=== PATIENT | female | born 1980 | race Two or more races ===

== ENCOUNTER 2022-10-31 02:48 | Emergency (ER) | payer OTHER, SELFPAY ==
--- NOTE | 2022-10-31 03:03 | ECG_ITS ---
Test Reason : SEIZURE Blood Pressure : / mmHG Vent. Rate : 113 BPM Atrial Rate : 113 BPM P-R Int : 134 ms QRS Dur : 080 ms QT Int : 328 ms P-R-T Axes : 072 071 002 degrees QTc Int : 449 ms Sinus tachycardia Minimal voltage criteria for LVH, may be normal variant ( Sokolow-Paz ) Nonspecific ST abnormality Abnormal ECG No previous ECGs available Referred By: Lilly Medeiros Electronically Signed By:Adam Graham
[2022-10-31 03:08] VITALS: BP 140/78; BP 154/90; PULSE 109; PULSE 120; RESP 10; TEMP 34.7; O2SAT 94; O2SAT 99; BMI 22.0
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
--- NOTE | 2022-10-31 03:13 | PC.NURSE ---
pt rectal temp 94.4, bear christinaer applied
[2022-10-31 03:35] LABS: Basophils Absolute Auto 0.1 X10*3/uL (0.0-0.2); Basophils Percent Auto 0.2 % (0-2); Hematocrit 42.8 % (37.0-47.0); Hemoglobin 13.7 g/dl (12.0-16.0); Imm Gran Abs Auto 0.16 X10*3/uL (0.00-0.03); Imm Gran Pct Auto 0.5 % (0.0-0.4); Lymphocytes Absolute Auto 0.6 X10*3/uL (1.2-4.9); Lymphocytes Percent Auto 2.1 % (20-40); Mean Corpuscular Hemoglobin 29.7 pg (27.0-33.0); Mean Corpuscular Volume 92.8 fL (80.0-98.0); Mean Platelet Volume 9.7 fL (9.4-12.3); Monocytes Absolute Auto 0.7 X10*3/uL (0.1-1.2); Monocytes Percent Auto 2.4 % (2-11); Neutrophils Absolute Auto 28.8 x10*3/uL (2.0-8.3); Neutrophils Percent Auto 94.8 % (45-73); Platelet Count 352 X10*3/uL (160-400); Red Blood Count 4.61 X10*6/uL (4.20-5.50); Red Cell Distribution Width 15.2 % (11.0-16.0); SCAN SMEAR FLAG 1
--- NOTE | 2022-10-31 03:37 | PC.NURSE ---
pt refused straight cath. Dr. Medeiros aware
[2022-10-31 03:38] LABS: Glucose, Whole Blood 225 mg/dL (60-115)
[2022-10-31 03:41] LABS: MANUAL DIFF FLAG SCAN; White Blood Count 30.4 X10*3/uL (4.8-10.8)
[2022-10-31 03:42] LABS: Prothrombin Time 11.9 SEC (10.0-13.1)
[2022-10-31 03:43] LABS: COVID-19 Test Positive (Negative); IDNOW Serial# 6674DD1D
[2022-10-31 03:54] LABS: SLIDE REVIEW VERIFIED
[2022-10-31 03:55] LABS: Alanine Aminotransferase 34 U/L (0-31); Albumin Level 4.4 g/dL (3.5-5.0); Alkaline Phosphatase 89 U/L (39-117); Anion Gap 19 (12-20); Aspartate Amino Transferase 45 U/L (5-31); Bilirubin Direct < 0.2 mg/dL (0.0-0.5); Bilirubin Total 0.3 mg/dL (0.0-1.0); Blood Urea Nitrogen 22 mg/dL (9-16); Calcium 9.2 mg/dL (8.4-10.2); Carbon Dioxide 21 mmol/L (22-29); Chloride 104 mmol/L (96-108); Creatinine Clr Calc Pharmacy 44.2; Estimated Glomerular Filt Rate 50; Glucose Random 147 mg/dL (60-115); Magnesium 2.6 mg/dL (1.6-2.6); Potassium 4.1 mmol/L (3.3-5.1); Sodium 140 mmol/L (135-145); Total Protein 7.4 g/dL (6.5-8.0)
[2022-10-31] MEDS: 0.9 % Sodium Chloride 2,000 ML 999 ML IVCONT (03:57)
[2022-10-31] MEDS: Piperacillin Sodium/Tazobactam 3.375 GM in 0.9 % Sodium Chloride 50 ML IV (03:57)
[2022-10-31 03:58] LABS: Troponin-I High Sensitivity 42.4 ng/L (<3.5-17.0)
[2022-10-31 04:04] LABS: Ethanol < 10 mg/dL
[2022-10-31 04:15] LABS: Lactic Acid 3.1 mmol/L (0.5-2.0)
[2022-10-31 04:34] LABS: TSH reflex Free T4 0.52 uIU/mL (0.32-4.0)
--- NOTE | 2022-10-31 04:34 | PC.NURSE ---
pt refused all care provided, pt became upset and wanted to leave AMA, Dr. Medeiros aware, pt encouraged to seek medical attention.
[2022-10-31 05:58] LABS: Reflex Lactate? Lactic Acid Added
== END 2022-10-31 04:38 | disposition left against medical advice (07) ==
LOC: HO.ED 04:35
PROVIDERS: Emergency Provider Emergency Medicine
DX: U07.1 COVID-19 (principal); R65.20 Severe sepsis without septic shock; D72.829 Elevated white blood cell count, unspecified; R56.9 Unspecified convulsions; Z79.899 Other long term (current) drug therapy
CPT/HCPCS: 36415; 80048; 80076; 82077; 82550; 82947; 83605; 83735; 84443; 84484; 85025; 85610; 87040; 87635; 93005; 96361; 96374; 99284; J2543

== ENCOUNTER 2022-11-01 17:44 | Inpatient (IN) | payer OTHER, SELFPAY ==
--- NOTE | ~2022-11-01 | XR_ITS ---
EXAMINATION: XR CHEST CLINICAL INFORMATION: Shortness of breath COMPARISON: None TECHNIQUE: Frontal view of the chest was obtained. FINDINGS: Heart size normal. No evidence of CHF. There is extensive right perihilar patchy density present suggesting pneumonia. A mass lesion cannot be entirely excluded. Ovoid opacity overlying left chest most likely left nipple shadow. No pleural effusions. The bony thorax is unremarkable. XR/XR chest 1V IMPRESSION: Right perihilar infiltrate. Follow-up chest radiograph after treatment is recommended to exclude a mass lesion. Alternatively, contrast-enhanced CT scan of the chest could be performed.
--- NOTE | ~2022-11-01 | CT_ITS ---
EXAMINATION: CT CHEST WITH CONTRAST CLINICAL INFORMATION: Question mass. COMPARISON: Chest x-ray 11/01/2022. TECHNIQUE: Multidetector volumetric CT imaging of the chest was obtained after the administration of 50 mL of Omnipaque 350 intravenous contrast without immediate adverse reactions. Axial MIP volume rendering provided. Sagittal and coronal reformatted images were obtained. This CT examination was performed using dose optimization techniques as appropriate, variously including the following: *Automated exposure control *Adjustment of mA and/or kV according to patient size (this includes techniques or standardized protocols for targeted exams where dose is matched to indication/reason for exam; i.e. extremities or head) *Use of iterative reconstruction technique DLP: 88 mGy-cm FINDINGS: SHAREPOINT APPLICATION DEVELOPER: The lungs are well inflated and clear. LUNGS: Well expanded with airspace bronchogram and patchy opacity right upper lobe and superior segment right lower lobe. The rest of lungs are well expanded and clear. No pulmonary nodule, mass or ground-glass density seen. MEDIASTINUM: The thyroid lobes are symmetric and normal. The central trachea and bronchi are widely patent. There is no mediastinal or hilar adenopathy seen. However there is suprahilar calcification, likely lymph node from old granulomatous disease. There are no coronary artery calcifications present. PLEURA: There is no pleural effusion. No pleural mass or thickening. AXILLA: No lymphadenopathy. UPPER ABDOMEN: Visualized liver, spleen, pancreas and bilateral adrenal glands are unremarkable. OSSEOUS STRUCTURES: No aggressive lytic or sclerotic process seen. CT/CT chest w IV con IMPRESSION: Right upper lobe and right lower lobe superior segment infiltrates. No obstructive hilar or endobronchial lesion seen. No abnormal lymphadenopathy. Small calcifications in the right suprahilar region, likely lymph nodes from granulomatous disease. Fleischner guidelines were followed.
--- NOTE | ~2022-11-01 | CT_ITS ---
EXAMINATION: CT HEAD WITHOUT CONTRAST CLINICAL INFORMATION: Seizure. COMPARISON: None available. TECHNIQUE: Contiguous axial imaging was performed from the skull base to vertex without intravenous administration of contrast. This CT examination was performed using dose optimization techniques as appropriate, variously including the following: *Automated exposure control. *Adjustment of mA and/or kV according to patient size (this includes techniques or standardized protocols for targeted exams where dose is matched to indication/reason for exam; i.e. extremities or head). *Use of iterative reconstruction technique. DLP: 584 mGy-cm FINDINGS: There is no evidence of acute intracranial hemorrhage or edematous territorial infarction. [place]-white matter differentiation is preserved. There is no abnormal attenuation within the brain parenchyma. The ventricles are normal in morphology and size. No evidence for obstructive hydrocephalus. No abnormal mass effect or midline shift. The cerebellar tonsils are normally positioned. No extra-axial fluid collections. No acute soft tissue or osseous abnormalities. The mastoid air cells and visualized paranasal sinuses are clear. Chronic appearing depression of the right lamina papyracea. CT/CT head/brain wo IV con IMPRESSION: 1. No evidence of acute intracranial hemorrhage or edematous territorial infarction. 2. No demonstrated abnormal mass effect on the noncontrast evaluation.
[2022-11-01 18:48] VITALS: BP 134/64; PULSE 88; RESP 16; TEMP 37.1; O2SAT 100; BMI 22.4
--- NOTE | 2022-11-01 18:50 | ED.GENADULT ---
HPI - General Adult General Chief complaint: Recheck/Abnormal Lab/Rx Stated complaint: was called had issue with bloodwork? Time Seen by Provider: 11/01/22 19:53 Related Data Previous Rx's Medication Instructions Recorded azithromycin 250 mg tablet 250 mg PO DAILY 5 days #5 tabs 11/04/22 cefuroxime axetil 500 mg tablet 500 mg PO BID 5 days #10 tabs 11/04/22 levetiracetam 500 mg tablet 500 mg PO BID 30 days #60 tabs 11/04/22 Allergies Allergy/AdvReac Type Severity Reaction Status Date / Time No Known Allergies Allergy Verified 10/31/22 03:03 [facility] Past Medical History Medical History (Updated 11/02/22 @ 15:43 by Mely Vázquez CNP) Diabetes Seizure disorder Social History Social History Household Members: Unknown / Unable to assess Housing: Unknown / Unable to assess Unable to assess alcohol history related to: Unknown and Refusing to respond Patient Tobacco Use Status: Tobacco use Unknown Substance Use Type: Marijuana service: No Current occupational status: unemployed Physical Exam ED Vital Signs: BMI result Body Mass Index 22.4 Course Course Course Narrative: RME: 42 yold female presents to the ED feeling sick. patient signed out AMA yesterday and was considered septic. WBC yesterday was 30,000. patient is positve covid. repeat labs ordered Medications Administered Discontinued Medications Generic Name Dose Route Start Last Admin Trade Name Freq PRN Reason Stop Dose Admin Acetaminophen 650 mg 11/01/22 22:27 11/04/22 10:44 Acetaminophen 325 Mg Tablet PO 650 mg Q6H PRN Administration Pain, Mild (Pain Scale 1-3) Azithromycin 500 mg 11/01/22 22:53 11/01/22 22:58 Azithromycin 500 Mg Tablet PO 11/01/22 22:54 500 mg ONCE ONE Administration Enoxaparin Sodium 40 mg 11/01/22 23:00 11/03/22 22:09 Enoxaparin Sodium 40 Mg/0.4 Ml Syringe SUBCUT 40 mg Q24H PILY Administration Hydroxyzine HCl 25 mg 11/03/22 15:00 11/04/22 08:20 Hydroxyzine Hcl 25 Mg Tablet PO 25 mg TID PILY Administration Sodium Chloride 1,000 mls @ 999 mls/hr 11/01/22 21:00 11/01/22 22:22 Ns IV 11/01/22 22:00 Infused .Q1H1M PILY Infusion Sodium Chloride 1,000 mls @ 999 mls/hr 11/01/22 21:00 11/01/22 22:23 Ns IV 11/01/22 22:00 Infused .Q1H1M PILY Infusion Levetiracetam 1,000 mg in 100 mls @ 400 mls/hr 11/01/22 20:50 11/01/22 22:00 Keppra IV 11/01/22 21:04 Infused ONCE ONE Infusion Ceftriaxone Sodium 1 gm/ 50 mls @ 100 mls/hr 11/01/22 21:37 11/01/22 22:49 Sodium Chloride IV 11/01/22 22:06 Infused ONCE ONE Infusion Levetiracetam 500 mg in 100 mls @ 400 mls/hr 11/02/22 09:00 11/03/22 08:42 Keppra IV Infused BID PILY Infusion Ceftriaxone Sodium 1 gm/ 50 mls @ 100 mls/hr 11/02/22 21:00 11/03/22 21:30 Sodium Chloride IV Infused Q24H PILY Infusion Azithromycin 500 mg/ Sodium 250 mls @ 125 mls/hr 11/02/22 22:00 11/04/22 00:10 Chloride IV Infused Q24H PILY Infusion Ibuprofen 400 mg 11/03/22 09:09 11/03/22 09:52 Ibuprofen 400 Mg Tablet PO 11/03/22 09:10 400 mg ONCE ONE Administration Ibuprofen 400 mg 11/03/22 14:01 11/04/22 08:20 Ibuprofen 400 Mg Tablet PO 400 mg Q6H PRN Administration Pain, Mild (Pain Scale 1-3) Iohexol 100 ml 11/02/22 11:59 11/02/22 12:00 Iohexol 350 Mg/Ml 100 Ml Infus..Btl IV 11/02/22 12:00 65 ml ONCE ONE Administration Levetiracetam 500 mg 11/03/22 21:00 11/04/22 09:07 Levetiracetam 500 Mg Tablet PO 500 mg BID PILY Administration Lorazepam 2 mg 11/02/22 12:05 11/02/22 13:01 Lorazepam 1 Mg Tablet PO 11/02/22 12:06 2 mg ONCE ONE Administration Magnesium Hydroxide 15 ml 11/04/22 09:38 11/04/22 10:38 Milk Of Magnesia 30 Ml Oral.Susp PO 11/04/22 09:39 15 ml ONCE ONE Administration Melatonin 6 mg 11/01/22 22:27 11/03/22 20:13 Melatonin 3 Mg Tablet PO 6 mg BEDTIME PRN Administration Insomnia Methadone HCl 10 mg 11/02/22 09:42 11/02/22 10:34 Methadone Hcl 20 Mg/2 Ml Oral.Conc PO 11/02/22 09:43 10 mg ONCE ONE Administration Potassium Chloride 40 meq 11/01/22 22:42 11/01/22 22:54 Potassium Chloride Packet 20 Meq Packet PO 11/01/22 22:43 40 meq ONCE ONE Administration Sodium Chloride 3 ml 11/02/22 00:00 11/04/22 08:20 0.9 % Sodium Chloride Flush 3 Ml Syringe IVFLUSH 3 ml QSHIFT PILY Administration Medical Decision Making Lab Data 11/02/22 05:50 11/02/22 05:50 Labs: Lab Results 11/01/22 11/01/22 11/01/22 Range/Units 19:50 19:50 19:50 WBC 9.5 (4.8-10.8) X10*3/uL RBC 4.62 (4.20-5.50) X10*6/uL Hgb 13.6 (12.0-16.0) g/dl Hct 40.6 (37.0-47.0) % MCV 87.9 (80.0-98.0) fL MCH 29.4 (27.0-33.0) pg MCHC 33.5 (31.0-35.0) g/dl RDW 14.6 (11.0-16.0) % Plt Count 363 (160-400) X10*3/uL MPV 9.5 (9.4-12.3) fL Immature Gran % (Auto) 0.2 (0.0-0.4) % Neut % (Auto) 64.5 (45-73) % Lymph % (Auto) 25.2 (20-40) % [place] % (Auto) 7.1 (2-11) % Eos % (Auto) 2.7 (0-4) % Baso % (Auto) 0.3 (0-2) % Lymph # (Auto) 2.4 (1.2-4.9) X10*3/uL [place] # (Auto) 0.7 (0.1-1.2) X10*3/uL Eos # (Auto) 0.3 (0.0-0.4) X10*3/uL Baso # (Auto) 0.0 (0.0-0.2) X10*3/uL Abs Immat Gran (auto) 0.02 (0.00-0.03) X10*3/uL Absolute Neuts (auto) 6.1 (2.0-8.3) x10*3/uL Absolute Nucleated RBC 0.000 (0.0-0.012) X10*3/uL Nucleated RBC % (auto) 0.0 (0.0-0.2) /100WBC ESR (0-20) MM/HR PT (10.0-13.1) SEC INR (0.9-1.1) APTT (26.0-36.4) SEC Sodium 140 (135-145) mmol/L Potassium 3.2 L D (3.3-5.1) mmol/L Chloride 100 (96-108) mmol/L Carbon Dioxide 30 H (22-29) mmol/L Anion Gap 13 (12-20) BUN 7 L (9-16) mg/dL Creatinine 0.73 (0.5-1.4) mg/dL Estim Creat Clear Calc 72.1 Estimated GFR > 60 Random Glucose 74 (60-115) mg/dL Lactic Acid 1.8 (0.5-2.0) mmol/L Calcium 9.7 (8.4-10.2) mg/dL Total Bilirubin 0.4 (0.0-1.0) mg/dL AST 91 H (5-31) U/L ALT 51 H (0-31) U/L Alkaline Phosphatase 74 (39-117) U/L Total Creatine Kinase 5418 H (26-140) U/L Total Protein 7.2 (6.5-8.0) g/dL Albumin 4.3 (3.5-5.0) g/dL Beta HCG, Quant < 2 mIU/mL Urine Color Urine Appearance Urine pH (5.0-9.0) Ur Specific [place] (1.005-1.025) Urine Protein (Neg-Trace) mg/dL Urine Glucose (UA) (Negative) mg/dL Urine Ketones (Negative) mg/dL Urine Blood (Negative) Urine Nitrite (Negative) Ur Leukocyte Esterase (Negative) Urine RBC (0-2) /HPF Urine WBC (0-5) /HPF Ur Squamous Epith Cells (0-2) /HPF Urine Bacteria (None Seen) Hyaline Casts (0-2) /LPF Urine Opiates Screen (Not Detect) Urine Fentanyl Screen (Not Detect) Ur Barbiturates Screen (Not Detect) Ur Phencyclidine Scrn (Not Detect) Ur Amphetamines Screen (Not Detect) U Benzodiazepines Scrn (Not Detect) Urine Cocaine Screen (Not Detect) U Marijuana (THC) Screen (Not Detect) 11/01/22 11/01/22 11/01/22 Range/Units 19:50 19:50 21:09 WBC (4.8-10.8) X10*3/uL RBC (4.20-5.50) X10*6/uL Hgb (12.0-16.0) g/dl Hct (37.0-47.0) % MCV (80.0-98.0) fL MCH (27.0-33.0) pg MCHC (31.0-35.0) g/dl RDW (11.0-16.0) % Plt Count (160-400) X10*3/uL MPV (9.4-12.3) fL Immature Gran % (Auto) (0.0-0.4) % Neut % (Auto) (45-73) % Lymph % (Auto) (20-40) % [place] % (Auto) (2-11) % Eos % (Auto) (0-4) % Baso % (Auto) (0-2) % Lymph # (Auto) (1.2-4.9) X10*3/uL [place] # (Auto) (0.1-1.2) X10*3/uL Eos # (Auto) (0.0-0.4) X10*3/uL Baso # (Auto) (0.0-0.2) X10*3/uL Abs Immat Gran (auto) (0.00-0.03) X10*3/uL Absolute Neuts (auto) (2.0-8.3) x10*3/uL Absolute Nucleated RBC (0.0-0.012) X10*3/uL Nucleated RBC % (auto) (0.0-0.2) /100WBC ESR 34 H (0-20) MM/HR PT 11.5 (10.0-13.1) SEC INR 1.0 (0.9-1.1) APTT 27.9 (26.0-36.4) SEC Sodium (135-145) mmol/L Potassium (3.3-5.1) mmol/L Chloride (96-108) mmol/L Carbon Dioxide (22-29) mmol/L Anion Gap (12-20) BUN (9-16) mg/dL Creatinine (0.5-1.4) mg/dL Estim Creat Clear Calc Estimated GFR Random Glucose (60-115) mg/dL Lactic Acid (0.5-2.0) mmol/L Calcium (8.4-10.2) mg/dL Total Bilirubin (0.0-1.0) mg/dL AST (5-31) U/L ALT (0-31) U/L Alkaline Phosphatase (39-117) U/L Total Creatine Kinase (26-140) U/L Total Protein (6.5-8.0) g/dL Albumin (3.5-5.0) g/dL Beta HCG, Quant mIU/mL Urine Color Yellow Urine Appearance Clear Urine pH 6.5 (5.0-9.0) Ur Specific [place] <= 1.005 (1.005-1.025) Urine Protein Negative (Neg-Trace) mg/dL Urine Glucose (UA) Negative (Negative) mg/dL Urine Ketones Negative (Negative) mg/dL Urine Blood Trace H (Negative) Urine Nitrite Negative (Negative) Ur Leukocyte Esterase Large (3+) H (Negative) Urine RBC 0-2 (0-2) /HPF Urine WBC 11-20 H (0-5) /HPF Ur Squamous Epith Cells 0-2 (0-2) /HPF Urine Bacteria None Seen (None Seen) Hyaline Casts 0-2 (0-2) /LPF Urine Opiates Screen (Not Detect) Urine Fentanyl Screen (Not Detect) Ur Barbiturates Screen (Not Detect) Ur Phencyclidine Scrn (Not Detect) Ur Amphetamines Screen (Not Detect) U Benzodiazepines Scrn (Not Detect) Urine Cocaine Screen (Not Detect) U Marijuana (THC) Screen (Not Detect) 11/01/22 Range/Units 21:09 WBC (4.8-10.8) X10*3/uL RBC (4.20-5.50) X10*6/uL Hgb (12.0-16.0) g/dl Hct (37.0-47.0) % MCV (80.0-98.0) fL MCH (27.0-33.0) pg MCHC (31.0-35.0) g/dl RDW (11.0-16.0) % Plt Count (160-400) X10*3/uL MPV (9.4-12.3) fL Immature Gran % (Auto) (0.0-0.4) % Neut % (Auto) (45-73) % Lymph % (Auto) (20-40) % [place] % (Auto) (2-11) % Eos % (Auto) (0-4) % Baso % (Auto) (0-2) % Lymph # (Auto) (1.2-4.9) X10*3/uL [place] # (Auto) (0.1-1.2) X10*3/uL Eos # (Auto) (0.0-0.4) X10*3/uL Baso # (Auto) (0.0-0.2) X10*3/uL Abs Immat Gran (auto) (0.00-0.03) X10*3/uL Absolute Neuts (auto) (2.0-8.3) x10*3/uL Absolute Nucleated RBC (0.0-0.012) X10*3/uL Nucleated RBC % (auto) (0.0-0.2) /100WBC ESR (0-20) MM/HR PT (10.0-13.1) SEC INR (0.9-1.1) APTT (26.0-36.4) SEC Sodium (135-145) mmol/L Potassium (3.3-5.1) mmol/L Chloride (96-108) mmol/L Carbon Dioxide (22-29) mmol/L Anion Gap (12-20) BUN (9-16) mg/dL Creatinine (0.5-1.4) mg/dL Estim Creat Clear Calc Estimated GFR Random Glucose (60-115) mg/dL Lactic Acid (0.5-2.0) mmol/L Calcium (8.4-10.2) mg/dL Total Bilirubin (0.0-1.0) mg/dL AST (5-31) U/L ALT (0-31) U/L Alkaline Phosphatase (39-117) U/L Total Creatine Kinase (26-140) U/L Total Protein (6.5-8.0) g/dL Albumin (3.5-5.0) g/dL Beta HCG, Quant mIU/mL Urine Color Urine Appearance Urine pH (5.0-9.0) Ur Specific [place] (1.005-1.025) Urine Protein (Neg-Trace) mg/dL Urine Glucose (UA) (Negative) mg/dL Urine Ketones (Negative) mg/dL Urine Blood (Negative) Urine Nitrite (Negative) Ur Leukocyte Esterase (Negative) Urine RBC (0-2) /HPF Urine WBC (0-5) /HPF Ur Squamous Epith Cells (0-2) /HPF Urine Bacteria (None Seen) Hyaline Casts (0-2) /LPF Urine Opiates Screen Not Detected (Not Detect) Urine Fentanyl Screen POSITIVE H (Not Detect) Ur Barbiturates Screen Not Detected (Not Detect) Ur Phencyclidine Scrn Not Detected (Not Detect) Ur Amphetamines Screen Not Detected (Not Detect) U Benzodiazepines Scrn Not Detected (Not Detect) Urine Cocaine Screen POSITIVE H (Not Detect) U Marijuana (THC) Screen POSITIVE H (Not Detect) Discharge Plan Discharge Clinical Impression: COVID-19, Polysubstance (including opioids) dependence w/o physiol dependence, Rhabdomyolysis, Pneumonia Patient Disposition: Admitted As Inpatient Interventions: Admission Worksheet (ED) Last Done: 11/02/22 15:25 Discharge Date/Time: 11/02/22 16:10
[2022-11-01 19:55] LABS: MANUAL DIFF FLAG NO
[2022-11-01 19:58] LABS: Basophils Percent Auto 0.3 % (0-2); Eosinophils Absolute Auto 0.3 X10*3/uL (0.0-0.4); Eosinophils Percent Auto 2.7 % (0-4); Hematocrit 40.6 % (37.0-47.0); Hemoglobin 13.6 g/dl (12.0-16.0); Imm Gran Abs Auto 0.02 X10*3/uL (0.00-0.03); Imm Gran Pct Auto 0.2 % (0.0-0.4); Lymphocytes Absolute Auto 2.4 X10*3/uL (1.2-4.9); Lymphocytes Percent Auto 25.2 % (20-40); Mean Corpuscular HGB Conc 33.5 g/dl (31.0-35.0); Mean Corpuscular Hemoglobin 29.4 pg (27.0-33.0); Mean Corpuscular Volume 87.9 fL (80.0-98.0); Mean Platelet Volume 9.5 fL (9.4-12.3); Monocytes Absolute Auto 0.7 X10*3/uL (0.1-1.2); Monocytes Percent Auto 7.1 % (2-11); Neutrophils Absolute Auto 6.1 x10*3/uL (2.0-8.3); Neutrophils Percent Auto 64.5 % (45-73); Platelet Count 363 X10*3/uL (160-400); Red Blood Count 4.62 X10*6/uL (4.20-5.50); Red Cell Distribution Width 14.6 % (11.0-16.0); White Blood Count 9.5 X10*3/uL (4.8-10.8)
[2022-11-01 20:04] LABS: Prothrombin Time 11.5 SEC (10.0-13.1)
[2022-11-01 20:06] LABS: Partial Thromboplastin Time 27.9 SEC (26.0-36.4)
[2022-11-01 20:18] LABS: Lactic Acid 1.8 mmol/L (0.5-2.0)
[2022-11-01 20:22] LABS: Alanine Aminotransferase 51 U/L (0-31); Albumin Level 4.3 g/dL (3.5-5.0); Alkaline Phosphatase 74 U/L (39-117); Anion Gap 13 (12-20); Aspartate Amino Transferase 91 U/L (5-31); Bilirubin Total 0.4 mg/dL (0.0-1.0); Blood Urea Nitrogen 7 mg/dL (9-16); Calcium 9.7 mg/dL (8.4-10.2); Carbon Dioxide 30 mmol/L (22-29); Chloride 100 mmol/L (96-108); Creatinine Clr Calc Pharmacy 72.1; Estimated Glomerular Filt Rate > 60; Glucose Random 74 mg/dL (60-115); Potassium 3.2 mmol/L (3.3-5.1); Sodium 140 mmol/L (135-145); Total Protein 7.2 g/dL (6.5-8.0)
--- NOTE | 2022-11-01 20:30 | PC.NURSE ---
Nursing Assessment: Pt's a/o x4, pt has IV 20g RAc, pt reports experiencing seizures today, seizures precautions was placed, labs were drawn and meds were administered. Pt abd soft bowel sound throughout 4 quadrants. Pt is able to ambulate to the bathroom. Pt + skin turgor, Pt reports abd pain and loosing appetite more 10 lbs within a month. Pt denies any other s/s.
--- NOTE | 2022-11-01 20:57 | ED_ITS ---
HPI - Recheck/Abnormal Lab/Rx General Chief Complaint: Recheck/Abnormal Lab/Rx Stated Complaint: was called had issue with bloodwork? Time Seen by Provider: 11/01/22 19:53 History of Present Illness HPI narrative: Patient was in the emergency department 2 days prior. At that time patient experienced 2 seizures. Post seizures patient had labs drawn. It showed an elevated lactate and extremely elevated white count 30. Patient did not want stay in the hospital or be further evaluated at the time. Left against medical advice walked out of the emergency department. Presented back to the ED for help. Patient denies having any specific complaints. No chest pain positive generalized malaise. Positive chronic back pain. Patient feel very tired. She is not coughing not congested. She was tested positive for COVID 2 days prior. Unsure when his symptoms started. Patient still feels very weak. He claims he has a long history of seizures. Baseline supposed to be on Keppra. She has been out of medications for months. Denies any new abdominal pain. Patient is extremely hungry. Denies any pain on urination. Denies any recreational drug use. Patient denies any history of IV drug use at all. Is worried that she has bugs in her hair. Related Data Allergies Allergy/AdvReac Type Severity Reaction Status Date / Time No Known Allergies Allergy Verified 10/31/22 03:03 Review of Systems Review of Systems: Positive generalized malaise weakness No fever no chills no cough no congestion that is new. No vomiting no diaphoresis Patient is from home. Yes all other systems are reviewed and are negative PMFSH Past Medical History Attestation statement: The following information was validated with the patient. Medical History (Updated 11/01/22 @ 22:53 by Crista Cazares MD) Diabetes Seizure disorder Social History Social History Smoked in Last 30 Days: Yes Use of substances other than those prescribed or required for medical reasons: Yes Substance Use Type: Marijuana Advance Directives: No Advance Directives Information Provided: Yes Physical Exam Vital Signs: Vital Signs: Last Vital Signs Temp 98.8 F 11/01/22 22:23 Pulse 97 11/01/22 22:23 Resp 18 11/01/22 22:23 BP 117/59 L 11/01/22 22:23 Pulse Ox 96 01/31/23 22:23 O2 Del Method 11/01/22 22:23 BMI result Body Mass Index 22.4 Appearance: Alert. Oriented X3. No acute distress. Eyes: Pupils equal, round and reactive to light. ENT: Pharynx normal. Neck: Normal inspection. Neck supple. No lymph nodes noted. No crepitus CVS: Normal heart rate and rhythm. Pulses normal. Normal S1 and S2 Respiratory: No respiratory distress. Breath sounds normal. No Wheezing. No rales Abdomen: Soft and nontender. No rigidity. No distention. good BS x4 Skin: Skin warm and dry. Normal skin color. Normal skin turgor. Extremities: No lower extremity edema. Neurovascular intact to all extremities. No Lacerations. No Rash Neuro: Oriented X 3. No motor deficit. No sensory deficit. Moving all extermities. No slurred speech Medications Administered Discontinued Medications Generic Name Dose Route Start Last Admin Trade Name Freq PRN Reason Stop Dose Admin Sodium Chloride 1,000 mls @ 999 mls/hr 11/01/22 21:00 11/01/22 21:21 Ns IV 11/01/22 22:00 999 mls/hr .Q1H1M PILY Administration Sodium Chloride 1,000 mls @ 999 mls/hr 11/01/22 21:00 11/01/22 21:22 Ns IV 11/01/22 22:00 999 mls/hr .Q1H1M PILY Administration Levetiracetam 1,000 mg in 100 mls @ 400 mls/hr 11/01/22 20:50 11/01/22 22:00 Keppra IV 11/01/22 21:04 Infused ONCE ONE Infusion Ceftriaxone Sodium 1 gm/ 50 mls @ 100 mls/hr 11/01/22 21:37 11/01/22 22:19 Sodium Chloride IV 11/01/22 22:06 100 mls/hr ONCE ONE Administration Medical Decision Making Medical Decision Making [facility] Narrative: Patient has a history of seizure in the past. Had 2 seizures 2 days prior. At the time had extremely elevated white count. Had elevated lactate. Question secondary to the margin lesion. Patient's repeat labs showed a normal white count. Normal lactate. However patient did have an extremely elevated CPK of over 5000. Cannot exclude the possibility of having rhabdo. IV fluids started patient's CT scan of the head was grossly negative. History of seizure baseline was on Keppra in [place] patient did not take her medication. Will start patient on Keppra 1 g IV. Will monitor patient. Patient's urine also showed signs of infection. Cultures obtained patient's lactate is less than 2 there is no evidence for sepsis patient was given Rocephin. Patient's case discussed with the hospitalist team will hydrate. Will monitor. Patient's ESR is in the 30s. No evidence for septic arthritis. Chest x-ray done. I personally reviewed the x-ray there is right middle lobe infiltrate will add azithromycin along with the Rocephin. Patient to be admitted for further hydration and treatment of rhabdo. Of note patient's tox screen came back positive for marijuana, fentanyl, cocaine Differential Diagnosis Differential Diagnoses: The differential diagnosis associated with the presentation includes Rhabdo, seizure, infection, pneumonia, UTI, skin infection, septic joint, spine infection Admission/Observation Consideration of admission/observation: Escalation of care including admission/observation considered Consult Healthcare Provider Management of the patient was discussed with: Hospitalist Lab Data [facility] Lab Attestation statement: I reviewed the patient's lab results. 11/01/22 19:50 11/01/22 19:50 Labs: Lab Results 11/01/22 11/01/22 11/01/22 Range/Units 19:50 19:50 19:50 WBC 9.5 (4.8-10.8) X10*3/uL RBC 4.62 (4.20-5.50) X10*6/uL Hgb 13.6 (12.0-16.0) g/dl Hct 40.6 (37.0-47.0) % MCV 87.9 (80.0-98.0) fL MCH 29.4 (27.0-33.0) pg MCHC 33.5 (31.0-35.0) g/dl RDW 14.6 (11.0-16.0) % Plt Count 363 (160-400) X10*3/uL MPV 9.5 (9.4-12.3) fL Immature Gran % (Auto) 0.2 (0.0-0.4) % Neut % (Auto) 64.5 (45-73) % Lymph % (Auto) 25.2 (20-40) % [place] % (Auto) 7.1 (2-11) % Eos % (Auto) 2.7 (0-4) % Baso % (Auto) 0.3 (0-2) % Lymph # (Auto) 2.4 (1.2-4.9) X10*3/uL [place] # (Auto) 0.7 (0.1-1.2) X10*3/uL Eos # (Auto) 0.3 (0.0-0.4) X10*3/uL Baso # (Auto) 0.0 (0.0-0.2) X10*3/uL Abs Immat Gran (auto) 0.02 (0.00-0.03) X10*3/uL Absolute Neuts (auto) 6.1 (2.0-8.3) x10*3/uL Absolute Nucleated RBC 0.000 (0.0-0.012) X10*3/uL Nucleated RBC % (auto) 0.0 (0.0-0.2) /100WBC ESR (0-20) MM/HR PT (10.0-13.1) SEC INR (0.9-1.1) APTT (26.0-36.4) SEC Sodium 140 (135-145) mmol/L Potassium 3.2 L D (3.3-5.1) mmol/L Chloride 100 (96-108) mmol/L Carbon Dioxide 30 H (22-29) mmol/L Anion Gap 13 (12-20) BUN 7 L (9-16) mg/dL Creatinine 0.73 (0.5-1.4) mg/dL Estim Creat Clear Calc 72.1 Estimated GFR > 60 Random Glucose 74 (60-115) mg/dL Lactic Acid 1.8 (0.5-2.0) mmol/L Calcium 9.7 (8.4-10.2) mg/dL Total Bilirubin 0.4 (0.0-1.0) mg/dL AST 91 H (5-31) U/L ALT 51 H (0-31) U/L Alkaline Phosphatase 74 (39-117) U/L Total Creatine Kinase 5418 H (26-140) U/L Total Protein 7.2 (6.5-8.0) g/dL Albumin 4.3 (3.5-5.0) g/dL Beta HCG, Quant < 2 mIU/mL Urine Color Urine Appearance Urine pH (5.0-9.0) Ur Specific [place] (1.005-1.025) Urine Protein (Neg-Trace) mg/dL Urine Glucose (UA) (Negative) mg/dL Urine Ketones (Negative) mg/dL Urine Blood (Negative) Urine Nitrite (Negative) Ur Leukocyte Esterase (Negative) Urine RBC (0-2) /HPF Urine WBC (0-5) /HPF Ur Squamous Epith Cells (0-2) /HPF Urine Bacteria (None Seen) Hyaline Casts (0-2) /LPF Urine Opiates Screen (Not Detect) Urine Fentanyl Screen (Not Detect) Ur Barbiturates Screen (Not Detect) Ur Phencyclidine Scrn (Not Detect) Ur Amphetamines Screen (Not Detect) U Benzodiazepines Scrn (Not Detect) Urine Cocaine Screen (Not Detect) U Marijuana (THC) Screen (Not Detect) 11/01/22 11/01/22 11/01/22 Range/Units 19:50 19:50 21:09 WBC (4.8-10.8) X10*3/uL RBC (4.20-5.50) X10*6/uL Hgb (12.0-16.0) g/dl Hct (37.0-47.0) % MCV (80.0-98.0) fL MCH (27.0-33.0) pg MCHC (31.0-35.0) g/dl RDW (11.0-16.0) % Plt Count (160-400) X10*3/uL MPV (9.4-12.3) fL Immature Gran % (Auto) (0.0-0.4) % Neut % (Auto) (45-73) % Lymph % (Auto) (20-40) % [place] % (Auto) (2-11) % Eos % (Auto) (0-4) % Baso % (Auto) (0-2) % Lymph # (Auto) (1.2-4.9) X10*3/uL [place] # (Auto) (0.1-1.2) X10*3/uL Eos # (Auto) (0.0-0.4) X10*3/uL Baso # (Auto) (0.0-0.2) X10*3/uL Abs Immat Gran (auto) (0.00-0.03) X10*3/uL Absolute Neuts (auto) (2.0-8.3) x10*3/uL Absolute Nucleated RBC (0.0-0.012) X10*3/uL Nucleated RBC % (auto) (0.0-0.2) /100WBC ESR 34 H (0-20) MM/HR PT 11.5 (10.0-13.1) SEC INR 1.0 (0.9-1.1) APTT 27.9 (26.0-36.4) SEC Sodium (135-145) mmol/L Potassium (3.3-5.1) mmol/L Chloride (96-108) mmol/L Carbon Dioxide (22-29) mmol/L Anion Gap (12-20) BUN (9-16) mg/dL Creatinine (0.5-1.4) mg/dL Estim Creat Clear Calc Estimated GFR Random Glucose (60-115) mg/dL Lactic Acid (0.5-2.0) mmol/L Calcium (8.4-10.2) mg/dL Total Bilirubin (0.0-1.0) mg/dL AST (5-31) U/L ALT (0-31) U/L Alkaline Phosphatase (39-117) U/L Total Creatine Kinase (26-140) U/L Total Protein (6.5-8.0) g/dL Albumin (3.5-5.0) g/dL Beta HCG, Quant mIU/mL Urine Color Yellow Urine Appearance Clear Urine pH 6.5 (5.0-9.0) Ur Specific [place] <= 1.005 (1.005-1.025) Urine Protein Negative (Neg-Trace) mg/dL Urine Glucose (UA) Negative (Negative) mg/dL Urine Ketones Negative (Negative) mg/dL Urine Blood Trace H (Negative) Urine Nitrite Negative (Negative) Ur Leukocyte Esterase Large (3+) H (Negative) Urine RBC 0-2 (0-2) /HPF Urine WBC 11-20 H (0-5) /HPF Ur Squamous Epith Cells 0-2 (0-2) /HPF Urine Bacteria None Seen (None Seen) Hyaline Casts 0-2 (0-2) /LPF Urine Opiates Screen (Not Detect) Urine Fentanyl Screen (Not Detect) Ur Barbiturates Screen (Not Detect) Ur Phencyclidine Scrn (Not Detect) Ur Amphetamines Screen (Not Detect) U Benzodiazepines Scrn (Not Detect) Urine Cocaine Screen (Not Detect) U Marijuana (THC) Screen (Not Detect) 11/01/22 Range/Units 21:09 WBC (4.8-10.8) X10*3/uL RBC (4.20-5.50) X10*6/uL Hgb (12.0-16.0) g/dl Hct (37.0-47.0) % MCV (80.0-98.0) fL MCH (27.0-33.0) pg MCHC (31.0-35.0) g/dl RDW (11.0-16.0) % Plt Count (160-400) X10*3/uL MPV (9.4-12.3) fL Immature Gran % (Auto) (0.0-0.4) % Neut % (Auto) (45-73) % Lymph % (Auto) (20-40) % [place] % (Auto) (2-11) % Eos % (Auto) (0-4) % Baso % (Auto) (0-2) % Lymph # (Auto) (1.2-4.9) X10*3/uL [place] # (Auto) (0.1-1.2) X10*3/uL Eos # (Auto) (0.0-0.4) X10*3/uL Baso # (Auto) (0.0-0.2) X10*3/uL Abs Immat Gran (auto) (0.00-0.03) X10*3/uL Absolute Neuts (auto) (2.0-8.3) x10*3/uL Absolute Nucleated RBC (0.0-0.012) X10*3/uL Nucleated RBC % (auto) (0.0-0.2) /100WBC ESR (0-20) MM/HR PT (10.0-13.1) SEC INR (0.9-1.1) APTT (26.0-36.4) SEC Sodium (135-145) mmol/L Potassium (3.3-5.1) mmol/L Chloride (96-108) mmol/L Carbon Dioxide (22-29) mmol/L Anion Gap (12-20) BUN (9-16) mg/dL Creatinine (0.5-1.4) mg/dL Estim Creat Clear Calc Estimated GFR Random Glucose (60-115) mg/dL Lactic Acid (0.5-2.0) mmol/L Calcium (8.4-10.2) mg/dL Total Bilirubin (0.0-1.0) mg/dL AST (5-31) U/L ALT (0-31) U/L Alkaline Phosphatase (39-117) U/L Total Creatine Kinase (26-140) U/L Total Protein (6.5-8.0) g/dL Albumin (3.5-5.0) g/dL Beta HCG, Quant mIU/mL Urine Color Urine Appearance Urine pH (5.0-9.0) Ur Specific [place] (1.005-1.025) Urine Protein (Neg-Trace) mg/dL Urine Glucose (UA) (Negative) mg/dL Urine Ketones (Negative) mg/dL Urine Blood (Negative) Urine Nitrite (Negative) Ur Leukocyte Esterase (Negative) Urine RBC (0-2) /HPF Urine WBC (0-5) /HPF Ur Squamous Epith Cells (0-2) /HPF Urine Bacteria (None Seen) Hyaline Casts (0-2) /LPF Urine Opiates Screen Not Detected (Not Detect) Urine Fentanyl Screen POSITIVE H (Not Detect) Ur Barbiturates Screen Not Detected (Not Detect) Ur Phencyclidine Scrn Not Detected (Not Detect) Ur Amphetamines Screen Not Detected (Not Detect) U Benzodiazepines Scrn Not Detected (Not Detect) Urine Cocaine Screen POSITIVE H (Not Detect) U Marijuana (THC) Screen POSITIVE H (Not Detect) Independent Interpretation I performed an independent interpretation of an: CT Scan Interpretation: Of the head was grossly negative for any acute evidence of bleeding Radiology Impression Discussion of test interpretation with radiology: I have reviewed the radiologist's reading. External Record Review External record reviewed: Inpatient record, Outpatient record and Prior outpatient labs Chronic Conditions Seizure Critical Care Time Critical Care Time Critical Care Time: Yes Total Critical Care Time: 40 Attestation: I have personally provided 40 minutes of critical care time exclusive of time spent on separately billable procedures. Time includes review of lab data, radiology results, discussion with consultants, and monitoring for potential decompensation. Interventions were performed as documented above Discharge Plan Discharge Clinical Impression: COVID-19, Polysubstance (including opioids) dependence w/o physiol dependence, Rhabdomyolysis, Pneumonia Patient Disposition: Admitted As Inpatient
[2022-11-01 21:19] LABS: Appearance Urine Clear; Color Urine Yellow; Glucose Urine UA Negative (Negative); Leukocyte Esterase Urine Large (3+) (Negative); Nitrite Urine Negative (Negative); PH 6.5 (5.0-9.0); Specific Gravity - Urine <= 1.005 (1.005-1.025); UMIC TRIGGER UACC YES; Urine Blood Trace (Negative); Urine Ketones Negative (Negative); Urine Protein Negative (Neg-Trace)
[2022-11-01] MEDS: 0.9 % Sodium Chloride 1,000 ML 999 ML IV ×2 (21:21→21:22)
[2022-11-01] MEDS: levETIRAcetam in NaCl (iso-os) 1,000 MG/100 ML PIGGYBACK 400 MG IV (21:21)
[2022-11-01 21:24] LABS: Bacteria Urine None Seen (None Seen); Hyaline Casts Urine 0-2 /LPF (0-2); RBC Urine 0-2 /HPF (0-2); Squamous Epithelial Cell Urine 0-2 /HPF (0-2); UACC Culture Trigger YES
[2022-11-01 21:24] LABS: HCG Quantitative < 2 mIU/mL
[2022-11-01 21:25] LABS: Amphetamine Screen Urine Not Detected (Not Detect); Barbiturates, Urine Not Detected (Not Detect); Benzodiazepines Screen Urine Not Detected (Not Detect); Cannabinoid Screen Urine POSITIVE (Not Detect); Cocaine Screen Urine POSITIVE (Not Detect); Fentanyl, urine POSITIVE (Not Detect); Opiate Screen Urine Not Detected (Not Detect); Phencyclidine Screen Urine Not Detected (Not Detect)
[2022-11-01 21:42] LABS: Erythrocyte Sedimentation Rate 34 MM/HR (0-20)
[2022-11-01] MEDS: cefTRIAXone sodium 1 GM in 0.9 % Sodium Chloride 50 ML IV (22:19)
[2022-11-01 22:23] VITALS: BP 117/59; PULSE 97; RESP 18; TEMP 37.1; O2SAT 96
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
[2022-11-01] MEDS: Enoxaparin Sodium 40 MG/0.4 ML SYRINGE SUBCUT (22:54)
[2022-11-01] MEDS: Potassium Chloride Packet 20 MEQ PACKET 40 MEQ PO (22:54)
[2022-11-01] MEDS: Azithromycin 500 MG TABLET PO (22:58)
[2022-11-01 23:48] VITALS: BP 108/63; PULSE 84; RESP 18; TEMP 37.3; O2SAT 99
[2022-11-02 04:24] LABS: COVID-19 Test Negative (Negative); IDNOW Serial# 6674DD1D
[2022-11-02 05:55] LABS: MANUAL DIFF FLAG NO
[2022-11-02 06:09] LABS: Basophils Percent Auto 0.3 % (0-2); Eosinophils Absolute Auto 0.3 X10*3/uL (0.0-0.4); Eosinophils Percent Auto 2.9 % (0-4); Hematocrit 36.9 % (37.0-47.0); Hemoglobin 11.8 g/dl (12.0-16.0); Imm Gran Pct Auto 1.2 % (0.0-0.4); Lymphocytes Absolute Auto 2.5 X10*3/uL (1.2-4.9); Lymphocytes Percent Auto 28.6 % (20-40); Mean Corpuscular Hemoglobin 29.1 pg (27.0-33.0); Mean Corpuscular Volume 90.9 fL (80.0-98.0); Mean Platelet Volume 9.8 fL (9.4-12.3); Monocytes Absolute Auto 0.7 X10*3/uL (0.1-1.2); Monocytes Percent Auto 7.9 % (2-11); Neutrophils Absolute Auto 5.1 x10*3/uL (2.0-8.3); Neutrophils Percent Auto 59.1 % (45-73); Platelet Count 334 X10*3/uL (160-400); Red Blood Count 4.06 X10*6/uL (4.20-5.50); Red Cell Distribution Width 14.6 % (11.0-16.0); White Blood Count 8.7 X10*3/uL (4.8-10.8)
[2022-11-02 06:43] LABS: Anion Gap 12 (12-20); Blood Urea Nitrogen 13 mg/dL (9-16); Calcium 8.7 mg/dL (8.4-10.2); Carbon Dioxide 26 mmol/L (22-29); Chloride 109 mmol/L (96-108); Creatinine Clr Calc Pharmacy 64.9; Estimated Glomerular Filt Rate > 60; Glucose Random 102 mg/dL (60-115); Potassium 4.4 mmol/L (3.3-5.1); Sodium 143 mmol/L (135-145); Thyroid Stimulating Hormone 0.32 uIU/mL (0.32-4.0)
--- NOTE | 2022-11-02 06:55 | PC.NURSE ---
assumed care of patient, pt aox3, resting comfortaby in bed, VSS, awaiting inpt bed
[2022-11-02 07:08] VITALS: BP 112/62; PULSE 79; RESP 16; TEMP 37.1; O2SAT 100
--- NOTE | 2022-11-02 08:04 | MHC.CM.PN ---
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 PT HAS NO CELL PHONE NUMBER LISTED CM ATTEMPTED TO CONTACT PTS DAUGHTER, TEMO DARNELL [phone] CALL WAS PICKED UP, CM COULD HEAR SEVERAL PEOPLE TALKING IN THE BACKGROUND, HOWEVER NO ONE RESPONDED TO GREETINGS. CM PLACED CALL TO PTS S/O, BENNIE POPE [phone] BENNIE REPORTS THE PT LIVES AT [facility] ON [facility] HE DOES NOT KNOW IF SHE HAS SERVICES, OR A PCP, OR A HCP, OR IF SHE RECEIVED THE COVID-19 VAX. HE REPORTS IT IS TYPICALLY VERY DIFFICULT TO REACH PTS DAUGHTER CURRENT DCP: RETURN TO [facility] VIA SHUTTLE CM FOLLOWING FOR CHANGING DC NEEDS
--- NOTE | 2022-11-02 08:42 | PHA.MEDREC ---
Pharmacy Consult ? Medication Reconciliation Pharmacy has completed the medication reconciliation.
--- NOTE | 2022-11-02 09:16 | PM.NEUROCN ---
History of Present Illness Data of Consult Service Date: 11/02/22 Primary Care Provider: Unknown Physician HPI Reason for consult: Seizure disorder 42 years old woman who came to hospital with complaint of seizure disorder. Apparently she was new to this area. She reported that she has been having seizures since she was 8 years old when she fell out of a building. She did not know details of seizures. Her partner stated that he had seen seizures and during that her neck was extended and eyes were rolled over and she was shaking. She said that she was unable to get her medicine in this area. She was brought to hospital and police found her household and dirty disheveled condition. Review of Systems Review of Systems: Report of multiple recent seizures PENDING SALE TO [facility] Past Medical History Medical History (Updated 11/01/22 @ 22:53 by Crista Cazares MD) Diabetes Seizure disorder Functional capacity: independent ambulation Social History Social History Patient Tobacco Use Status: Tobacco use Unknown Smoked in Last 30 Days: Yes Use of substances other than those prescribed or required for medical reasons: Yes Substance Use Type: Marijuana Advance Directives: No Advance Directives Information Provided: Yes Nutrition Risks: No Nutritional Risk service: No Current occupational status: unemployed Meds Allergies Allergy/AdvReac Type Severity Reaction Status Date / Time No Known Allergies Allergy Verified 10/31/22 03:03 Active Medications: Current Medications Acetaminophen (Acetaminophen 325 Mg Tablet) 650 mg PO Q6H PRN PRN Reason: Pain, Mild (Pain Scale 1-3) Enoxaparin Sodium (Enoxaparin Sodium 40 Mg/0.4 Ml Syringe) 40 mg SUBCUT Q24H PILY Last Admin: 11/01/22 22:54 Dose: 40 mg Levetiracetam (Keppra) 500 mg in 100 mls @ 400 mls/hr IV BID [facility] Ceftriaxone Sodium 1 gm/ (Sodium Chloride) 50 mls @ 100 mls/hr IV Q24H PILY Azithromycin 500 mg/ Sodium (Chloride) 250 mls @ 125 mls/hr IV Q24H PILY Melatonin (Melatonin 3 Mg Tablet) 6 mg PO BEDTIME PRN PRN Reason: Insomnia Ondansetron HCl (Ondansetron Hcl 4 Mg/2 Ml Vial) 4 mg IVPUSH Q8H PRN PRN Reason: Nausea and Vomiting Sodium Chloride (0.9 % Sodium Chloride Flush 3 Ml Syringe) 3 ml IVFLUSH QSHIFT PILY Last Admin: 11/02/22 07:22 Dose: Not Given Home Medications Medication Instructions Recorded Confirmed Last Taken Type No Known Home Meds 11/02/22 11/02/22 Unknown History Physical Exam Vital Signs: Vital Signs: Last Vital Signs Temp 98.8 F 11/02/22 07:08 Pulse 79 11/02/22 07:08 Resp 16 11/02/22 07:08 BP 112/62 11/02/22 07:08 Pulse Ox 100 11/02/22 07:08 O2 Del Method 11/02/22 07:08 BMI result Body Mass Index 22.4 Neuro: Other: Alert and awake but uncomfortable with light keeping her eyes closed. No obvious focal weakness. No obvious facial asymmetry. She is able to communicate and answer questions. Exam is limited. Results Labs 11/02/22 05:50 11/02/22 05:50 Labs: Short CBC 11/01/22 11/02/22 Range/Units 19:50 05:50 WBC 9.5 8.7 (4.8-10.8) X10*3/uL Hgb 13.6 11.8 L (12.0-16.0) g/dl Hct 40.6 36.9 L (37.0-47.0) % Plt Count 363 334 (160-400) X10*3/uL BMP 11/01/22 11/02/22 19:50 05:50 Sodium 140 143 Potassium 3.2 L D 4.4 D Chloride 100 109 H Carbon Dioxide 30 H 26 BUN 7 L 13 Creatinine 0.73 0.81 Calcium 9.7 8.7 D Cardiac Enzymes 11/01/22 11/02/22 Range/Units 19:50 05:50 Total Creatine Kinase 5418 H 3189 H (26-140) U/L Liver Function 11/01/22 Range/Units 19:50 Total Bilirubin 0.4 (0.0-1.0) mg/dL AST 91 H (5-31) U/L ALT 51 H (0-31) U/L Alkaline Phosphatase 74 (39-117) U/L Albumin 4.3 (3.5-5.0) g/dL Urine 11/01/22 Range/Units 21:09 Urine Color Yellow Urine Appearance Clear Urine pH 6.5 (5.0-9.0) Ur Specific [place] <= 1.005 (1.005-1.025) Urine Protein Negative (Neg-Trace) mg/dL Urine Glucose (UA) Negative (Negative) mg/dL Noncontrast head CT is normal. Assessment and Plan (1) Seizure disorder: Status: Acute 42 years old woman with self-reported history of seizure disorder since she was 8 years old comprised of generalized seizures reported by her partner. She also suffered from polysubstance abuse including cocaine. Epilepsy could not be independently confirm at this time but I would suggest continuing levetiracetam 500 mg twice a day for now. She was COVID positive and I would avoid any testing with potential exposure to staff at this point. Once she is stable and well, an outpatient EEG can be considered. Otherwise mainstay of management is staying away from drug of abuse, which was made clear to her, and continuing regular medicines. She was not clear for driving and should avoid any activity that could put her life in danger such as seminal alone or sitting in a soaking tub alone. Time Spent With Patient Time: Total time managing care of this patient today ____ minutes. Procedures Date of Service Date of Service: 11/02/22
[2022-11-02] MEDS: levETIRAcetam in NaCl (iso-os) 500 MG/100 ML PIGGYBACK 400 MG IV ×2 (09:42→20:36)
--- NOTE | 2022-11-02 10:06 | MHC.RECOVRN ---
Met with pt in [facility]flow 1 to discuss substance use. Pt laying in bed, restless, anxious, mildly diaphoretic, mild rhinorrhea. Pt reports using crack cocaine, INH, $150-200 daily x 2 years. 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 Denies heroin/opioid/fentanyl use. Pt aware UDS positive for fentanyl, assumes it is present in crack cocaine. Pt reporting opioid withdrawal symptoms including restlessness, anxiety, body aches. Pt also experiencing stimulant withdrawal. Discussed methadone to address opioid withdrawal symptoms, pt agreeable, has never received methadone before. Pt concerned about being discharged from [facility] due to substance use. Pt informed t/w does not contact the [facility]. Denies other questions or concerns. Discussed with Mely Vázquez APRN. Plan to administer 10 mg methadone and reassess.
[2022-11-02] MEDS: methADONE HCl 20 MG/2 ML ORAL.CONC 10 MG PO (10:34)
[2022-11-02] MEDS: iohexoL 350 MG/ML 100 ML INFUS..BTL IV (12:00)
--- NOTE | 2022-11-02 12:03 | MHC.RECOVRN ---
Met with pt to follow up after receiving methadone, 10 mg. Pt laying in bed, awake, alert, easily engages in conversation. Requesting water and a shower. Pt reports methadone didn't do anything. Withdrawal symptoms including anxiety, rhinorrea, body aches, restlessness continue. Denies upset stomach, yawning, gooseflesh, tearing eyes. Pt appears to be uncomfortable and anxious. Discussed with Mely Vázquez APRN. Plan to administer lorazepam and reassess.
[2022-11-02] MEDS: LORazepam 1 MG TABLET 2 MG PO (13:01)
--- NOTE | 2022-11-02 13:04 | HO.PM.IMPN ---
Subjective Subjective Date of Service: 11/02/22 Review of Systems Follow up Seizure no further seizures while inaptient denies chest pain, sob, nausea or vomiting Physical Exam Vital Signs: Vital Signs: Last Vital Signs Temp 98.8 F 11/02/22 07:08 Pulse 79 11/02/22 07:08 Resp 16 11/02/22 07:08 BP 112/62 11/02/22 07:08 Pulse Ox 100 11/02/22 07:08 O2 Del Method 11/02/22 07:08 BMI result Body Mass Index 22.4 Appearing in no acute distress lung sounds are clear to auscultation heart regular rate rhythm, clear S1, S2 positive bowel sounds, abdomen is soft, nontender neuro patient is alert x3, no focal deficits Multiple scars to abdomen from scratching Objective Data Active Medications Acetaminophen (Acetaminophen 325 Mg Tablet) 650 mg PO Q6H PRN PRN Reason: Pain, Mild (Pain Scale 1-3) Enoxaparin Sodium (Enoxaparin Sodium 40 Mg/0.4 Ml Syringe) 40 mg SUBCUT Q24H [facility] Last Admin: 11/01/22 22:54 Dose: 40 mg Documented By: LORAINE Levetiracetam (Keppra) 500 mg in 100 mls @ 400 mls/hr IV BID [facility] Last Infusion: 11/02/22 09:57 Dose: 0 mls/hr Documented By: LUCY Ceftriaxone Sodium 1 gm/ (Sodium Chloride) 50 mls @ 100 mls/hr IV Q24H PILY Azithromycin 500 mg/ Sodium (Chloride) 250 mls @ 125 mls/hr IV Q24H [facility] Melatonin (Melatonin 3 Mg Tablet) 6 mg PO BEDTIME PRN PRN Reason: Insomnia Ondansetron HCl (Ondansetron Hcl 4 Mg/2 Ml Vial) 4 mg IVPUSH Q8H PRN PRN Reason: Nausea and Vomiting Sodium Chloride (0.9 % Sodium Chloride Flush 3 Ml Syringe) 3 ml IVFLUSH QSHIFT [facility] Last Admin: 11/02/22 07:22 Dose: Not Given Documented By: SHIRLEY Non-Admin Reason: IV Running Labs 11/02/22 05:50 11/02/22 05:50 Labs: Laboratory Results - last 24 hr 11/01/22 11/01/22 11/01/22 19:50 19:50 19:50 MCV 87.9 MCH 29.4 MCHC 33.5 RDW 14.6 Plt Count 363 MPV 9.5 Immature Gran % (Auto) 0.2 Neut % (Auto) 64.5 Lymph % (Auto) 25.2 [place] % (Auto) 7.1 Eos % (Auto) 2.7 Baso % (Auto) 0.3 Lymph # (Auto) 2.4 [place] # (Auto) 0.7 Eos # (Auto) 0.3 Baso # (Auto) 0.0 Abs Immat Gran (auto) 0.02 Absolute Neuts (auto) 6.1 Absolute Nucleated RBC 0.000 Nucleated RBC % (auto) 0.0 ESR PT INR APTT Anion Gap 13 Estim Creat Clear Calc 72.1 Estimated GFR > 60 Random Glucose 74 Lactic Acid 1.8 Calcium 9.7 Total Bilirubin 0.4 AST 91 H ALT 51 H Alkaline Phosphatase 74 Total Creatine Kinase 5418 H Total Protein 7.2 Albumin 4.3 TSH Beta HCG, Quant < 2 Urine Color Urine Appearance Urine pH Ur Specific [place] Urine Protein Urine Glucose (UA) Urine Ketones Urine Blood Urine Nitrite Ur Leukocyte Esterase Urine RBC Urine WBC Ur Squamous Epith Cells Urine Bacteria Hyaline Casts Urine Opiates Screen Urine Fentanyl Screen Ur Barbiturates Screen Ur Phencyclidine Scrn Ur Amphetamines Screen U Benzodiazepines Scrn Urine Cocaine Screen U Marijuana (THC) Screen COVID-19 (CLARE) COVID-19 Clin Com 11/01/22 11/01/22 11/01/22 19:50 19:50 21:09 MCV MCH MCHC RDW Plt Count MPV Immature Gran % (Auto) Neut % (Auto) Lymph % (Auto) [place] % (Auto) Eos % (Auto) Baso % (Auto) Lymph # (Auto) [place] # (Auto) Eos # (Auto) Baso # (Auto) Abs Immat Gran (auto) Absolute Neuts (auto) Absolute Nucleated RBC Nucleated RBC % (auto) ESR 34 H PT 11.5 INR 1.0 APTT 27.9 Anion Gap Estim Creat Clear Calc Estimated GFR Random Glucose Lactic Acid Calcium Total Bilirubin AST ALT Alkaline Phosphatase Total Creatine Kinase Total Protein Albumin TSH Beta HCG, Quant Urine Color Yellow Urine Appearance Clear Urine pH 6.5 Ur Specific [place] <= 1.005 Urine Protein Negative Urine Glucose (UA) Negative Urine Ketones Negative Urine Blood Trace H Urine Nitrite Negative Ur Leukocyte Esterase Large (3+) H Urine RBC 0-2 Urine WBC 11-20 H Ur Squamous Epith Cells 0-2 Urine Bacteria None Seen Hyaline Casts 0-2 Urine Opiates Screen Urine Fentanyl Screen Ur Barbiturates Screen Ur Phencyclidine Scrn Ur Amphetamines Screen U Benzodiazepines Scrn Urine Cocaine Screen U Marijuana (THC) Screen COVID-19 (CLARE) COVID-19 Clin Com 11/01/22 11/02/22 11/02/22 21:09 04:01 05:50 MCV 90.9 MCH 29.1 MCHC 32.0 RDW 14.6 Plt Count 334 MPV 9.8 Immature Gran % (Auto) 1.2 H Neut % (Auto) 59.1 Lymph % (Auto) 28.6 [place] % (Auto) 7.9 Eos % (Auto) 2.9 Baso % (Auto) 0.3 Lymph # (Auto) 2.5 [place] # (Auto) 0.7 Eos # (Auto) 0.3 Baso # (Auto) 0.0 Abs Immat Gran (auto) 0.10 H Absolute Neuts (auto) 5.1 Absolute Nucleated RBC 0.000 Nucleated RBC % (auto) 0.0 ESR PT INR APTT Anion Gap Estim Creat Clear Calc Estimated GFR Random Glucose Lactic Acid Calcium Total Bilirubin AST ALT Alkaline Phosphatase Total Creatine Kinase Total Protein Albumin TSH Beta HCG, Quant Urine Color Urine Appearance Urine pH Ur Specific [place] Urine Protein Urine Glucose (UA) Urine Ketones Urine Blood Urine Nitrite Ur Leukocyte Esterase Urine RBC Urine WBC Ur Squamous Epith Cells Urine Bacteria Hyaline Casts Urine Opiates Screen Not Detected Urine Fentanyl Screen POSITIVE H Ur Barbiturates Screen Not Detected Ur Phencyclidine Scrn Not Detected Ur Amphetamines Screen Not Detected U Benzodiazepines Scrn Not Detected Urine Cocaine Screen POSITIVE H U Marijuana (THC) Screen POSITIVE H COVID-19 (CLARE) Negative COVID-19 Clin Com See Note 11/02/22 05:50 MCV MCH MCHC RDW Plt Count MPV Immature Gran % (Auto) Neut % (Auto) Lymph % (Auto) [place] % (Auto) Eos % (Auto) Baso % (Auto) Lymph # (Auto) [place] # (Auto) Eos # (Auto) Baso # (Auto) Abs Immat Gran (auto) Absolute Neuts (auto) Absolute Nucleated RBC Nucleated RBC % (auto) ESR PT INR APTT Anion Gap 12 Estim Creat Clear Calc 64.9 Estimated GFR > 60 Random Glucose 102 Lactic Acid Calcium 8.7 D Total Bilirubin AST ALT Alkaline Phosphatase Total Creatine Kinase 3189 H Total Protein Albumin TSH 0.32 Beta HCG, Quant Urine Color Urine Appearance Urine pH Ur Specific [place] Urine Protein Urine Glucose (UA) Urine Ketones Urine Blood Urine Nitrite Ur Leukocyte Esterase Urine RBC Urine WBC Ur Squamous Epith Cells Urine Bacteria Hyaline Casts Urine Opiates Screen Urine Fentanyl Screen Ur Barbiturates Screen Ur Phencyclidine Scrn Ur Amphetamines Screen U Benzodiazepines Scrn Urine Cocaine Screen U Marijuana (THC) Screen COVID-19 (CLARE) COVID-19 Clin Com Microbiology Microbiology Results: Microbiology 11/01/22 21:50 Urine Culture - Preliminary Urine clean catch - Urine he top No growth to date. Assessment and Plan (1) Pneumonia: Status: Acute Plan This is a 42-year-old female with pertinent history of seizure disorder, mood disorder, substance use disorder who presents to the emergency department by EMS for evaluation of seizures. Seizure disorder Noncompliance with medications.? Loaded with Keppra in the ER.? Will consult Neurology for recommendations continue Keppra 500mg BID o/p EEG avoid activities such as driving, soaking tubs, swimming alone Right sided pneumonia Rocephin and azithromycin Obtaining CT chest with contrast to rule out a mass Rhabdomyolysis Resuscitating with IV crystalloids.? CPK trending down Substance use disorder UDS positive for cocaine,marijuana and fentanyl.? Monitor for withdrawal.? Consulted CARE team and addiction team. Mood disorder Previously on Zoloft and Seroquel.? Consulting psych for uncontrolled depression and anxiety Hypokalemia Repleted COVID-19 infection Test date 10/31:? No hypoxemia and no indication for Decadron DVT prophylaxis: Lovenox [address] Mustafa Full code continued hospital stay for IV fluid resuscitation and IV abx Time Spent With Patient Time: Total time managing care of this patient today ____ minutes. Quality Stroke Does the patient have a stroke diagnosis?: No VTE Prior VTE?: No VTE Risk Level:: Medical - moderate - high VTE Device Contraindication: Treatment Not Indicated VTE Drug Contraindication: N/A - Med Ordered
--- NOTE | 2022-11-02 13:22 | HO.ADDICT_ITS ---
History of Present Illness Date of Service: 11/02/2022 Chief Complaint: Generalized weakness Reason for Consult: substance use Additional Sources of Information: Patient is a 42 year old female with history of seizure disorder currently medically admitted. UDS +fentanyl, opiates and cocaine. Patient initially seen by Recovery Support RN and appearing uncomfortable, restless, diaphoretic and reporting body aches. Methadone 10mg one time dose ordered and administered. Patient then seen in follow up by this conventional mortgage underwriter, in overflow room 1. Lights off, but TV on. Patient awake, alert, pleasant and engaged in interview. Reports that methadone was not helpful, however patient was no longer restless or diaphoretic. Patient states she moved to [place] 3 months ago from [place] and is living [facility] [place] [facility] with her adult children. She states she has been smoking crack cocaine for about 3 years on and off , however, since moving to [place], she reports smoking daily. She denies any history of opioid use. Discussed UDS results and patient again reports that she does not use heroin or fentanyl, but within the last week she has noted that when she smokes she feels sleepy and has been throwing up a couple of days . She has been buying from the same dealer since moving here. She denies any history of overdose Denies any history of C[facility] treatment Strong family history of addiction -- both parents with OUD Minimal to no supports here in [place]. Review of Systems Constitutional: Reports as per HPI and Reports body ache(s) Diagnostics Vital Signs (24Hr): Vital Signs - 24 hr 11/01/22 18:48 11/01/22 22:23 11/01/22 23:48 Temperature 98.8 F 98.8 F 99.1 F Pulse Rate 88 97 84 Respiratory Rate 16 18 18 Blood Pressure 134/64 117/59 L 108/63 Pulse Oximetry 100 96 99 Oxygen Delivery Method Room Air Room Air Room Air 11/02/22 07:08 Temperature 98.8 F Pulse Rate 79 Respiratory Rate 16 Blood Pressure 112/62 Pulse Oximetry 100 Oxygen Delivery Method Room Air BMI result Body Mass Index 22.4 Labs 11/02/22 05:50 11/02/22 05:50 Labs: Laboratory Results - last 48 hr 11/01/22 11/01/22 11/01/22 19:50 19:50 19:50 WBC 9.5 RBC 4.62 Hgb 13.6 Hct 40.6 MCV 87.9 MCH 29.4 MCHC 33.5 RDW 14.6 Plt Count 363 MPV 9.5 Immature Gran % (Auto) 0.2 Neut % (Auto) 64.5 Lymph % (Auto) 25.2 Warren % (Auto) 7.1 Eos % (Auto) 2.7 Baso % (Auto) 0.3 Lymph # (Auto) 2.4 Warren # (Auto) 0.7 Eos # (Auto) 0.3 Baso # (Auto) 0.0 Abs Immat Gran (auto) 0.02 Absolute Neuts (auto) 6.1 Absolute Nucleated RBC 0.000 Nucleated RBC % (auto) 0.0 ESR PT INR APTT Sodium 140 Potassium 3.2 L D Chloride 100 Carbon Dioxide 30 H Anion Gap 13 BUN 7 L Creatinine 0.73 Estim Creat Clear Calc 72.1 Estimated GFR > 60 Random Glucose 74 Lactic Acid 1.8 Calcium 9.7 Total Bilirubin 0.4 AST 91 H ALT 51 H Alkaline Phosphatase 74 Total Creatine Kinase 5418 H Total Protein 7.2 Albumin 4.3 TSH Beta HCG, Quant < 2 Urine Color Urine Appearance Urine pH Ur Specific Harvard Urine Protein Urine Glucose (UA) Urine Ketones Urine Blood Urine Nitrite Ur Leukocyte Esterase Urine RBC Urine WBC Ur Squamous Epith Cells Urine Bacteria Hyaline Casts Urine Opiates Screen Urine Fentanyl Screen Ur Barbiturates Screen Ur Phencyclidine Scrn Ur Amphetamines Screen U Benzodiazepines Scrn Urine Cocaine Screen U Marijuana (THC) Screen COVID-19 (CLARE) COVID-19 Clin Com 11/01/22 11/01/22 11/01/22 19:50 19:50 21:09 WBC RBC Hgb Hct MCV MCH MCHC RDW Plt Count MPV Immature Gran % (Auto) Neut % (Auto) Lymph % (Auto) Warren % (Auto) Eos % (Auto) Baso % (Auto) Lymph # (Auto) Warren # (Auto) Eos # (Auto) Baso # (Auto) Abs Immat Gran (auto) Absolute Neuts (auto) Absolute Nucleated RBC Nucleated RBC % (auto) ESR 34 H PT 11.5 INR 1.0 APTT 27.9 Sodium Potassium Chloride Carbon Dioxide Anion Gap BUN Creatinine Estim Creat Clear Calc Estimated GFR Random Glucose Lactic Acid Calcium Total Bilirubin AST ALT Alkaline Phosphatase Total Creatine Kinase Total Protein Albumin TSH Beta HCG, Quant Urine Color Yellow Urine Appearance Clear Urine pH 6.5 Ur Specific Harvard <= 1.005 Urine Protein Negative Urine Glucose (UA) Negative Urine Ketones Negative Urine Blood Trace H Urine Nitrite Negative Ur Leukocyte Esterase Large (3+) H Urine RBC 0-2 Urine WBC 11-20 H Ur Squamous Epith Cells 0-2 Urine Bacteria None Seen Hyaline Casts 0-2 Urine Opiates Screen Urine Fentanyl Screen Ur Barbiturates Screen Ur Phencyclidine Scrn Ur Amphetamines Screen U Benzodiazepines Scrn Urine Cocaine Screen U Marijuana (THC) Screen COVID-19 (CLARE) COVID-19 [employer] Com 11/01/22 11/02/22 11/02/22 21:09 04:01 05:50 WBC 8.7 RBC 4.06 L Hgb 11.8 L Hct 36.9 L MCV 90.9 MCH 29.1 MCHC 32.0 RDW 14.6 Plt Count 334 MPV 9.8 Immature Gran % (Auto) 1.2 H Neut % (Auto) 59.1 Lymph % (Auto) 28.6 Warren % (Auto) 7.9 Eos % (Auto) 2.9 Baso % (Auto) 0.3 Lymph # (Auto) 2.5 Warren # (Auto) 0.7 Eos # (Auto) 0.3 Baso # (Auto) 0.0 Abs Immat Gran (auto) 0.10 H Absolute Neuts (auto) 5.1 Absolute Nucleated RBC 0.000 Nucleated RBC % (auto) 0.0 ESR PT INR APTT Sodium Potassium Chloride Carbon Dioxide Anion Gap BUN Creatinine Estim Creat Clear Calc Estimated GFR Random Glucose Lactic Acid Calcium Total Bilirubin AST ALT Alkaline Phosphatase Total Creatine Kinase Total Protein Albumin TSH Beta HCG, Quant Urine Color Urine Appearance Urine pH Ur Specific Harvard Urine Protein Urine Glucose (UA) Urine Ketones Urine Blood Urine Nitrite Ur Leukocyte Esterase Urine RBC Urine WBC Ur Squamous Epith Cells Urine Bacteria Hyaline Casts Urine Opiates Screen Not Detected Urine Fentanyl Screen POSITIVE H Ur Barbiturates Screen Not Detected Ur Phencyclidine Scrn Not Detected Ur Amphetamines Screen Not Detected U Benzodiazepines Scrn Not Detected Urine Cocaine Screen POSITIVE H U Marijuana (THC) Screen POSITIVE H COVID-19 (CLARE) Negative COVID-19 Clin Com See Note 11/02/22 05:50 WBC RBC Hgb Hct MCV MCH MCHC RDW Plt Count MPV Immature Gran % (Auto) Neut % (Auto) Lymph % (Auto) Warren % (Auto) Eos % (Auto) Baso % (Auto) Lymph # (Auto) Warren # (Auto) Eos # (Auto) Baso # (Auto) Abs Immat Gran (auto) Absolute Neuts (auto) Absolute Nucleated RBC Nucleated RBC % (auto) ESR PT INR APTT Sodium 143 Potassium 4.4 D Chloride 109 H Carbon Dioxide 26 Anion Gap 12 BUN 13 Creatinine 0.81 Estim Creat Clear Calc 64.9 Estimated GFR > 60 Random Glucose 102 Lactic Acid Calcium 8.7 D Total Bilirubin AST ALT Alkaline Phosphatase Total Creatine Kinase 3189 H Total Protein Albumin TSH 0.32 Beta HCG, Quant Urine Color Urine Appearance Urine pH Ur Specific Harvard Urine Protein Urine Glucose (UA) Urine Ketones Urine Blood Urine Nitrite Ur Leukocyte Esterase Urine RBC Urine WBC Ur Squamous Epith Cells Urine Bacteria Hyaline Casts Urine Opiates Screen Urine Fentanyl Screen Ur Barbiturates Screen Ur Phencyclidine Scrn Ur Amphetamines Screen U Benzodiazepines Scrn Urine Cocaine Screen U Marijuana (THC) Screen COVID-19 (CLARE) COVID-19 Clin Com Imaging Radiology Impressions: ITS Impressions Head CT 11/01/22 21:54 IMPRESSION: 1. No evidence of acute intracranial hemorrhage or edematous territorial infarction. 2. No demonstrated abnormal mass effect on the noncontrast evaluation. Chest X-Ray 11/01/22 22:52 IMPRESSION: Right perihilar infiltrate. Follow-up chest radiograph after treatment is recommended to exclude a mass lesion. Alternatively, contrast-enhanced CT scan of the chest could be performed. Mental Status Exam Mental Status Exam Patient Appearance: Unkempt (thin) Level of Consciousness: Awake, Appropriate and Alert Patient Behavior: Cooperative Affect Description: Anxious Patient Cognition Impaired: No Speech Pattern: Clear Judgement: Fair Medications Medications Current Medications Acetaminophen (Acetaminophen 325 Mg Tablet) 650 mg PO Q6H PRN PRN Reason: Pain, Mild (Pain Scale 1-3) Enoxaparin Sodium (Enoxaparin Sodium 40 Mg/0.4 Ml Syringe) 40 mg SUBCUT Q24H [facility] Last Admin: 11/01/22 22:54 Dose: 40 mg Levetiracetam (Keppra) 500 mg in 100 mls @ 400 mls/hr IV BID [facility] Last Infusion: 11/02/22 09:57 Dose: Infused Ceftriaxone Sodium 1 gm/ (Sodium Chloride) 50 mls @ 100 mls/hr IV Q24H [facility] Azithromycin 500 mg/ Sodium (Chloride) 250 mls @ 125 mls/hr IV Q24H [facility] Melatonin (Melatonin 3 Mg Tablet) 6 mg PO BEDTIME PRN PRN Reason: Insomnia Ondansetron HCl (Ondansetron Hcl 4 Mg/2 Ml Vial) 4 mg IVPUSH Q8H PRN PRN Reason: Nausea and Vomiting Sodium Chloride (0.9 % Sodium Chloride Flush 3 Ml Syringe) 3 ml IVFLUSH QSHIFT [facility] Last Admin: 11/02/22 07:22 Dose: Not Given Allergies Allergies Allergy/AdvReac Type Severity Reaction Status Date / Time No Known Allergies Allergy Verified 10/31/22 03:03 Assessment & Plan Assessment & Plan (1) Cocaine use disorder, severe, dependence: Status: Acute Code(s): F14.20 - Cocaine dependence, uncomplicated Assessment and Plan: * patient experiencing cocaine withdrawal. Less likely opioid withdrawal based on her history and reported use * treating body aches with ibuprofen and hydration is recommended standard of care * hydroxyzine for anxiety * allowing patient to sleep if possible due to sleep deprivation from chronic stimulant use * risk reduction discussion related to testing cocaine before using for presence of fentanyl (Recovery Support RN to check in the AM with additional information) * risk reduction discussion related to ongoing use and seizure disorder Total time managing care of this patient today _40___ minutes. PMFSH Past Medical History Medical History (Updated 11/02/22 @ 15:43 by Mely Vázquez CNP) Diabetes Seizure disorder Social History Social History Patient Tobacco Use Status: Tobacco use Unknown Smoked in Last 30 Days: Yes Use of substances other than those prescribed or required for medical reasons: Yes Substance Use Type: Marijuana Advance Directives: No Advance Directives Information Provided: Yes Nutrition Risks: No Nutritional Risk service: No Current occupational status: unemployed
[2022-11-02] MEDS: 0.9 % Sodium Chloride Flush 3 ML SYRINGE IVFLUSH ×2 (15:14→20:36)
[2022-11-02 16:15] VITALS: BP 98/61; PULSE 72; RESP 18; TEMP 37; O2SAT 98
--- NOTE | 2022-11-02 16:48 | PC.NURSE ---
pt refusing to talk to this RN and answer admission questions.
[2022-11-02 19:27] VITALS: BP 100/57; PULSE 69; RESP 18; TEMP 37.1; O2SAT 97
[2022-11-02] MEDS: Acetaminophen 325 MG TABLET 650 MG PO (20:36)
[2022-11-02] MEDS: cefTRIAXone sodium 1 GM in 0.9 % Sodium Chloride 50 ML IV (20:48)
[2022-11-02] MEDS: Azithromycin 500 MG in 0.9 % Sodium Chloride 250 ML 125 MG IV (22:47)
[2022-11-02] MEDS: Enoxaparin Sodium 40 MG/0.4 ML SYRINGE SUBCUT (22:47)
[2022-11-03 03:50] VITALS: BP 121/67; PULSE 68; RESP 18; TEMP 36.5; O2SAT 99
[2022-11-03 08:00] VITALS: BP 110/58; PULSE 83; RESP 18; TEMP 36.8; O2SAT 98
[2022-11-03] MEDS: levETIRAcetam in NaCl (iso-os) 500 MG/100 ML PIGGYBACK 400 MG IV (08:17)
[2022-11-03] MEDS: 0.9 % Sodium Chloride Flush 3 ML SYRINGE IVFLUSH (08:24)
--- NOTE | 2022-11-03 08:46 | ECG_ITS ---
Test Reason : chest pain Blood Pressure : / mmHG Vent. Rate : 078 BPM Atrial Rate : 078 BPM P-R Int : 134 ms QRS Dur : 086 ms QT Int : 370 ms P-R-T Axes : 060 058 024 degrees QTc Int : 421 ms Normal sinus rhythm Normal ECG When compared with ECG of 31-OCT-2022 03:01, T wave amplitude has decreased in Anterior leads Referred By: Sandrine Pinto Electronically Signed By:Adam Graham
[2022-11-03] MEDS: Ibuprofen 400 MG TABLET PO ×2 (09:52→20:14)
[2022-11-03] MEDS: hydrOXYzine HCL 25 MG TABLET PO ×2 (13:54→20:13)
--- NOTE | 2022-11-03 14:03 | P.PNIM_ITS ---
Subjective Subjective Date of Service: 11/03/22 Interval History: seen and examined this morning follow up for seizure, pneumonia reporting chest pain to right chest wall, reproducible on exam no significant sob Review of Systems Review of Systems: Yes all other systems are reviewed and are negative Constitutional Constitutional: Denies chills and Denies fever(s) Cardiovascular Cardiovascular: Reports chest pain, Denies palpitations and Denies dyspnea Respiratory Respiratory: Denies dyspnea Gastrointestinal Gastrointestinal: Denies abdominal pain, Denies nausea and Denies vomiting Endocrine Endocrine: Denies palpitations Physical Exam Vital Signs: Vital Signs: Last Vital Signs Temp 98.3 F 11/03/22 08:00 Pulse 83 11/03/22 08:00 Resp 18 11/03/22 08:00 BP 110/58 L 11/03/22 08:00 Pulse Ox 98 11/03/22 08:00 O2 Del Method 11/03/22 08:00 BMI result Body Mass Index 22.4 Const: General: alert and awake Nutritional Appearance: thin Orientation/consciousness: patient oriented x3 Chest: Other: point tenderness right anterior chest wall Resp: Effort & Inspection: normal respiratory effort, able to speak in complete sentences, no respiratory distress and no use of accessory muscles Cardio: Rate: regular rate Heart sounds: S1 normal heart sound present and S2 normal heart sound present GI: Inspection: No distended Palpation (GI): Soft to palpation Neuro: General: patient oriented x3 Extrem: General: Yes no pedal edema Objective Data Active Medications Acetaminophen (Acetaminophen 325 Mg Tablet) 650 mg PO Q6H PRN PRN Reason: Pain, Mild (Pain Scale 1-3) Last Admin: 11/02/22 20:36 Dose: 650 mg Documented By: RYAN Benzonatate (Benzonatate 100 Mg Capsule) 100 mg PO TID PRN PRN Reason: Cough Enoxaparin Sodium (Enoxaparin Sodium 40 Mg/0.4 Ml Syringe) 40 mg SUBCUT Q24H S Last Admin: 11/02/22 22:47 Dose: 40 mg Documented By: RYAN Hydroxyzine HCl (Hydroxyzine Hcl 25 Mg Tablet) 25 mg PO TID [facility] Last Admin: 11/03/22 13:54 Dose: 25 mg Documented By: SOLISKORI Levetiracetam (Keppra) 500 mg in 100 mls @ 400 mls/hr IV BID [facility] Last Infusion: 11/03/22 08:42 Dose: 0 mls/hr Documented By: PAWEL Ceftriaxone Sodium 1 gm/ (Sodium Chloride) 50 mls @ 100 mls/hr IV Q24H [facility] Last Infusion: 11/02/22 21:41 Dose: 0 mls/hr Documented By: RYAN Azithromycin 500 mg/ Sodium (Chloride) 250 mls @ 125 mls/hr IV Q24H [facility] Last Infusion: 11/03/22 02:30 Dose: 0 mls/hr Documented By: RYAN Ibuprofen (Ibuprofen 400 Mg Tablet) 400 mg PO Q6H PRN PRN Reason: Pain, Mild (Pain Scale 1-3) Melatonin (Melatonin 3 Mg Tablet) 6 mg PO BEDTIME PRN PRN Reason: Insomnia Ondansetron HCl (Ondansetron Hcl 4 Mg/2 Ml Vial) 4 mg IVPUSH Q8H PRN PRN Reason: Nausea and Vomiting Sodium Chloride (0.9 % Sodium Chloride Flush 3 Ml Syringe) 3 ml IVFLUSH QSHIFT [facility] Last Admin: 11/03/22 08:24 Dose: 3 ml Documented By: PAWEL Tramadol HCl (Tramadol Hcl 50 Mg Tablet) 50 mg PO Q6H PRN PRN Reason: Pain, Moderate (Pain Scale 4-6 Labs 11/02/22 05:50 11/02/22 05:50 Microbiology Microbiology Results: Microbiology 11/01/22 21:50 Urine Culture - Final Urine clean catch - Urine he top No growth. 11/01/22 19:50 Blood Culture - Preliminary Blood - Venous No growth after 24 hours. 11/01/22 19:50 Blood Culture - Preliminary Blood - Venous No growth after 24 hours. Assessment and Plan (1) Cocaine use disorder, severe, dependence: Status: Acute (2) Pneumonia: Status: Acute (3) COVID-19: Status: Acute (4) Seizure disorder: Status: Acute Plan This is a 42-year-old female with pertinent history of seizure disorder, mood disorder, substance use disorder who presents to the emergency department by EMS for evaluation of seizures. Seizure disorder secondary to noncompliance with medications.? Loaded with Keppra in the ER.? seen by neuro, recommend to continue keppra 500 bid o/p EEG avoid activities such as driving, soaking tubs, swimming alone Right sided pneumonia continue Rocephin and azithromycin, D#2 CT chest with contrast - confirms RUL, RLL pneumonia, no evidence of mass Blood cultures negative to date Chest pain likely r/t pneumonia focal point tenderness on exam EKG without ischemic changes symptomatic care Rhabdomyolysis s/p IVF? CPK trending down Substance use disorder UDS positive for cocaine,marijuana and fentanyl.? Monitor for withdrawal.? addiction following, recommend atarax, motrin Mood disorder Previously on Zoloft and Seroquel.? Consulting psych for uncontrolled depression and anxiety Hypokalemia Resolved with replacement COVID-19 infection Test date 10/31:? No hypoxemia and no indication for Decadron DVT prophylaxis: Lovenox [address] Mustafa Full code continued hospital stay for IV abx Time Spent With Patient Time: Total time managing care of this patient today ____ minutes. Quality Stroke Does the patient have a stroke diagnosis?: No VTE Prior VTE?: No VTE Risk Level:: Medical - moderate - high VTE Device Contraindication: Treatment Not Indicated VTE Drug Contraindication: N/A - Med Ordered
[2022-11-03 15:15] VITALS: BP 131/76; PULSE 65; RESP 18; TEMP 36.9; O2SAT 100
[2022-11-03] MEDS: Acetaminophen 325 MG TABLET 650 MG PO (15:19)
--- NOTE | 2022-11-03 16:27 | MHC.RECOVRN ---
This signwriter met with patient, patient was laying in bed, under covers. Patient reporting body aches, sweats, chills, increased anxiety. Harm reduction reviewed. Recovery resources reviewed, provided with materials for Maryellen Mcnally, [facility] and [facility] contact info. Reviewed assessment w/ Provider Mely Vázquez, discussed ordering Hydroxyzine for anxiety, Tylenol when due for body aches d/t DA withdrawal.
[2022-11-03] MEDS: levETIRAcetam 500 MG TABLET PO (20:13)
[2022-11-03] MEDS: Melatonin 3 MG TABLET 6 MG PO (20:13)
[2022-11-03] MEDS: cefTRIAXone sodium 1 GM in 0.9 % Sodium Chloride 50 ML IV (20:15)
[2022-11-03] MEDS: Enoxaparin Sodium 40 MG/0.4 ML SYRINGE SUBCUT (22:09)
[2022-11-03] MEDS: Azithromycin 500 MG in 0.9 % Sodium Chloride 250 ML 125 MG IV (22:09)
[2022-11-04] MEDS: 0.9 % Sodium Chloride Flush 3 ML SYRINGE IVFLUSH ×2 (00:16→08:20)
[2022-11-04 03:43] VITALS: BP 115/79; PULSE 67; RESP 18; TEMP 36.6; O2SAT 99
[2022-11-04 07:56] VITALS: BP 128/69; PULSE 76; RESP 18; TEMP 36.1; O2SAT 100
[2022-11-04] MEDS: Ibuprofen 400 MG TABLET PO (08:20)
[2022-11-04] MEDS: hydrOXYzine HCL 25 MG TABLET PO (08:20)
--- NOTE | 2022-11-04 08:35 | P.CDIC_ITS ---
CDI Concurrent Query Documentation Clarification: PHYSICIAN'S DOCUMENTATION REQUEST Date of Query: 11/04/22 0835 Patient Name: Mely Neff Admit Date: 11/01/22 Dear Doctor, A review of the medical record indicates additional documentation may be needed. Please review below and update the documentation accordingly. Clinical Indicators: Risk Factors/Clinical Indicators/Treatments PMH: Seizure disorder, family noticed 2 episodes of seizures, patient has not taken meds in 2 months. Loaded with Keppra in the ED. If possible, please further clarify in the Progress Notes, the type/etiology, acuity and control status of seizure(s): Specify type/etiology: * Idiopathic * Febrile (specify simple or complex) * Due to external cause (specify if drug, alcohol, stress, etc.) * Absence * Generalized epilepsy (grand mal, myoclonic, atonic, clonic, tonic-clonic, etc.) * Focal or partial (specify simple or complex) * Petit mal * Recurrent - further specify type/etiology * Other * Unable to determine Specify acuity: * With status epilepticus * Without status epilepticus * Other * Unable to determine Specify control status: * Well controlled * Intractable * Pharmacoresistant * Poorly controlled * Refractory * Treatment resistant * Other * Unable to determine Use of terms such as suspected, likely, concern for, or probable (associated with a specific diagnosis that is being evaluated, monitored, or treated as if it exists) are acceptable and can be coded in the inpatient setting, when documented at the time of discharge. Thank you, Kerry Vega [facility], CDIS Extension: [phone] Please use your independent medical judgment in providing your response. THIS QUERY IS PART OF THE PERMANENT MEDICAL RECORD Provider Response: Other Other Diagnosis: seizure related to not taking seizure medication; without status epilepticus
--- NOTE | 2022-11-04 08:35 | MHC.CDI.CONC ---
CDI Concurrent Query Documentation Clarification: PHYSICIAN'S DOCUMENTATION REQUEST Date of Query: 11/04/22 0835 Patient Name: Mely Neff Admit Date: 11/01/22 Dear Doctor, A review of the medical record indicates additional documentation may be needed. Please review below and update the documentation accordingly. Clinical Indicators: Risk Factors/Clinical Indicators/Treatments PMH: Seizure disorder, family noticed 2 episodes of seizures, patient has not taken meds in 2 months. Loaded with Keppra in the ED. If possible, please further clarify in the Progress Notes, the type/etiology, acuity and control status of seizure(s): Specify type/etiology: Idiopathic Febrile (specify simple or complex) Due to external cause (specify if drug, alcohol, stress, etc.) Absence Generalized epilepsy (grand mal, myoclonic, atonic, clonic, tonic-clonic, etc.) Focal or partial (specify simple or complex) Petit mal Recurrent - further specify type/etiology Other Unable to determine Specify acuity: With status epilepticus Without status epilepticus Other Unable to determine Specify control status: Well controlled Intractable Pharmacoresistant Poorly controlled Refractory Treatment resistant Other Unable to determine Use of terms such as suspected, likely, concern for, or probable (associated with a specific diagnosis that is being evaluated, monitored, or treated as if it exists) are acceptable and can be coded in the inpatient setting, when documented at the time of discharge. Thank you, Kerry Vega [facility], CDIS Extension: [phone] Please use your independent medical judgment in providing your response. THIS QUERY IS PART OF THE PERMANENT MEDICAL RECORD Provider Response: Other Other Diagnosis: seizure related to not taking seizure medication; without status epilepticus
[2022-11-04] MEDS: levETIRAcetam 500 MG TABLET PO (09:07)
[2022-11-04] MEDS: Milk of Magnesia 30 ML ORAL.SUSP 15 ML PO (10:38)
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
[2022-11-04] MEDS: Acetaminophen 325 MG TABLET 650 MG PO (10:44)
--- NOTE | 2022-11-04 11:10 | MHC.CM.PN ---
HOME - SELF CARE C SHUTTLE TO PROVIDE TRANSPORTATION. RN AND PATIENT AWARE OF PLAN.
== END 2022-11-04 12:53 | disposition home or self-care (01) | DRG 53 ==
LOC: HO.ED 22:35 → HO.EDOVER 22:39 → HO.S3 11-02 14:57
PROVIDERS: Physician Assistant; Admitting Provider Student in an Organized Health Care Education/Training Program; Emergency Provider Emergency Medicine Emergency Medical Services; Visit Provider Physician Assistant Medical
DX: G40.909 Epilepsy, unspecified, not intractable, without status epilepticus (principal); J18.9 Pneumonia, unspecified organism; M62.82 Rhabdomyolysis; F14.20 Cocaine dependence, uncomplicated; E87.6 Hypokalemia; F41.9 Anxiety disorder, unspecified; T42.76XA Underdosing of unspecified antiepileptic and sedative-hypnotic drugs, initial encounter; T43.226A Underdosing of selective serotonin reuptake inhibitors, initial encounter; Z20.822 Contact with and (suspected) exposure to COVID-19; Z56.0 Unemployment, unspecified
CPT/HCPCS: 36415; 70450; 71045; 71260; 80048; 80053; 80307; 81001; 82550; 83605; 84443; 84702; 85025; 85610; 85652; 85730; 87040; 87086; 87635; 93005; 99285; J0456; J0696; J1650; J1953; Q9967

== ENCOUNTER 2023-04-25 23:09 | Emergency (ER) | payer OTHER, SELFPAY ==
[2023-04-25 23:35] VITALS: BP 138/69; PULSE 79; RESP 16; TEMP 36.1; O2SAT 97; BMI 21.1
[2023-04-26 01:45] VITALS: RESP 14
[2023-04-26] MEDS: Doxycycline Monohydrate 100 MG CAPSULE PO (02:16)
[2023-04-26] MEDS: hydrOXYzine HCL 50 MG TABLET PO (02:16)
--- NOTE | 2023-04-26 02:28 | ED_ITS ---
HPI - Skin/Abscess/Foreign Bdy General Chief complaint: Skin/Abscess/Foreign Body Stated complaint: gen med Time Seen by Provider: 04/26/23 01:40 Source: patient Mode of arrival: ambulatory Limitations: no limitations History of Present Illness HPI narrative: Patient with history of IV drug use noticed rash itching feeling behind the Ear and the neck area mostly in the nighttime no rash in the hands groin area pa brauliont does have some scabs at the back of the neck Related Data Previous Rx's Medication Instructions Recorded azithromycin 250 mg tablet 250 mg PO DAILY 5 days #5 tabs 11/04/22 cefuroxime axetil 500 mg tablet 500 mg PO BID 5 days #10 tabs 11/04/22 levetiracetam 500 mg tablet 500 mg PO BID 30 days #60 tabs 11/04/22 doxycycline hyclate 100 mg tablet 100 mg PO BID #20 tabs 04/26/23 hydroxyzine HCl 25 mg tablet 25 mg PO Q6-8H PRN itching #30 tabs 04/26/23 permethrin 5 % topical cream 1 appl topical Q14D 2 doses #60 04/26/23 grams Allergies Allergy/AdvReac Type Severity Reaction Status Date / Time No Known Allergies Allergy Verified 10/31/22 03:03 Review of Systems Review of Systems: Yes all other systems are reviewed and are negative [facility] Past Medical History Medical History Diabetes Seizure disorder Social History Social History Household Members: Unknown / Unable to assess Housing: Unknown / Unable to assess Unable to assess alcohol history related to: Unknown and Refusing to respond Patient Tobacco Use Status: Tobacco use Unknown Substance Use Type: Marijuana Advance Directives: No Advance Directives Information Provided: No service: No Current occupational status: unemployed Physical Exam Vital Signs: Vital Signs: Last Vital Signs Temp 97.0 F 04/25/23 23:35 Pulse 79 04/25/23 23:35 Resp 16 04/25/23 23:35 BP 138/69 04/25/23 23:35 Pulse Ox 97 04/25/23 23:35 O2 Del Method Room Air 04/25/23 23:35 BMI result Body Mass Index 21.1 Appearance: Alert. Oriented X3. No acute distress. ENT: Pharynx normal. Oral Mucosa moist Neck: Normal inspection. Neck supple. CVS: Normal heart rate and rhythm. Pulses normal. Respiratory: No respiratory distress. Equal air entry bilateral, no wheezing/rales/rhonchi Abdomen: Soft and nontender. Bowel sounds are present, no mass palpable, no CVA tenderness Skin: Skin warm and dry. Normal skin color. Normal skin turgor. Rash with scabs and behind the Ear Extremities: No lower extremity edema. No calf tenderness Neuro: Oriented X 3. No motor deficit. Medications Administered Discontinued Medications Generic Name Dose Route Start Last Admin Trade Name Freq PRN Reason Stop Dose Admin Doxycycline Monohydrate 100 mg 04/26/23 01:55 04/26/23 02:16 Doxycycline Monohydrate 100 Mg Capsule PO 04/26/23 01:56 100 mg ONCE ONE Administration Hydroxyzine HCl 50 mg 04/26/23 01:55 04/26/23 02:16 Hydroxyzine Hcl 50 Mg Tablet PO 04/26/23 01:56 50 mg ONCE ONE Administration Discharge Plan Discharge Clinical Impression: Insect bites Patient Disposition: Home, Self-Care Instructions: Acute Rash (ED) Additional Instructions: Take antibiotics and apply cream as advised Prescriptions: New permethrin 5 % cream 1 appl topical Q14D Qty: 60 0RF Rx Instructions: apply second treatment 14 days after first treatment if live lice remain doxycycline hyclate 100 mg tablet 100 mg PO BID Qty: 20 0RF hydroxyzine HCl 25 mg tablet 25 mg PO Q6-8H PRN (Reason: itching) Qty: 30 0RF No Action levetiracetam 500 mg Tablet 500 mg PO BID 30 Days Qty: 60 0RF azithromycin 250 mg tablet 250 mg PO DAILY 5 Days Qty: 5 0RF cefuroxime axetil 500 mg tablet 500 mg PO BID 5 Days Qty: 10 0RF Interventions: ED Discharge Assessment Last Done: 04/26/23 02:43
--- NOTE | 2023-04-26 02:40 | PC.NURSE ---
pt refused final set of vital signs. pt medicated according to mar. [facility] pt at discharge time
== END 2023-04-26 02:50 | disposition home or self-care (01) ==
PROVIDERS: Emergency Provider Internal Medicine
DX: S10.96XA Insect bite of unspecified part of neck, initial encounter (principal); W57.XXXA Bitten or stung by nonvenomous insect and other nonvenomous arthropods, initial encounter; F14.20 Cocaine dependence, uncomplicated; F19.20 Other psychoactive substance dependence, uncomplicated; Y93.9 Activity, unspecified; Y92.9 Unspecified place or not applicable; Y99.9 Unspecified external cause status
CPT/HCPCS: 99283; 99284

== ENCOUNTER 2023-06-20 17:57 | Emergency (ER) | payer OTHER, SELFPAY ==
--- NOTE | ~2023-06-20 | XR_ITS ---
EXAMINATION: XR CHEST CLINICAL INFORMATION: Overdose. Status post CPR. COMPARISON: None available. TECHNIQUE: Frontal view of the chest was obtained. FINDINGS: The cardiomediastinal silhouette is normal. There is no focal lung consolidation or pleural effusion. The bony structures and soft tissues are unremarkable. XR/XR chest 1V IMPRESSION: No active cardiopulmonary disease.
[2023-06-20 18:06] VITALS: BP 127/75; BP 142/90; PULSE 66; PULSE 80; RESP 16; TEMP 36.6; O2SAT 98; O2SAT 99; BMI 21.7
--- NOTE | 2023-06-20 19:14 | PC.NURSE ---
pt reporting accidental OD with heroin. pt denies si/hi at this time. vss. changed over with security; belongings secured in decon. pt axox4, respirations even and unlabored.
--- NOTE | 2023-06-20 19:34 | ED.OVERDOSE ---
HPI - Overdose General Chief Complaint: Overdose Stated Complaint: OVERDOSE Time Seen by Provider: 06/20/23 18:11 Source: patient Mode of arrival: EMS Limitations: other (Somnolent) History of Present Illness HPI Narrative: Patient comes to the emergency room via ambulance. [place] unresponsive [place] a [place] by a bystander who started CPR. Patient was given 6 mg of intranasal Narcan, patient became alert and oriented immediately. Patient admits to snorting a bag of heroin. Patient denies suicidal ideation, states this was an accidental overdose. Related Data Previous Rx's Medication Instructions Recorded azithromycin 250 mg tablet 250 mg PO DAILY 5 days #5 tabs 11/04/22 cefuroxime axetil 500 mg tablet 500 mg PO BID 5 days #10 tabs 11/04/22 levetiracetam 500 mg tablet 500 mg PO BID 30 days #60 tabs 11/04/22 doxycycline hyclate 100 mg tablet 100 mg PO BID #20 tabs 04/26/23 hydroxyzine HCl 25 mg tablet 25 mg PO Q6-8H PRN itching #30 tabs 04/26/23 permethrin 5 % topical cream 1 appl topical Q14D 2 doses #60 04/26/23 grams Allergies Allergy/AdvReac Type Severity Reaction Status Date / Time No Known Allergies Allergy Verified 10/31/22 03:03 Review of Systems Review of Systems: Constitutional : No Weight loss, No Fever, No Chills, No Night Sweats, No Fatigue, No Malaise ENT/Mouth : No Hearing loss, No Ear Pain, No Nasal Congestion, No Sinus Pain, No Hoarseness, No sore throat, No Rhinorrhea, No Swallowing Difficulty Eyes: No Eye Pain, No Swelling, No Redness, No Foreign Body, No Discharge, No Vision Changes Cardiovascular : No Chest Pain, No SOB, No Dyspnea on Exertion, No Orthopnea, No Edema, No Palpitations Respiratory : No Cough, No Sputum, No Wheezing, No Smoke Exposure, No Dyspnea Gastrointestinal : Complaining of feeling nauseous No Vomiting, No Diarrhea, No Constipation, No abdominal Pain, No Hematochezia, No Melena Genitourinary : no irregular bleeding, No Dysuria, No Urinary Frequency, No Hematuria, No Urinary Incontinence, No Urgency, No Flank Pain, No Urinary Flow Changes, No Hesitancy Musculoskeletal : No joint pain, No Myalgias, No Joint Swelling Skin : No Skin Lesions, No rash Neuro : No Weakness, No Numbness, No Paresthesias, No Loss of Consciousness, No Dizziness, No Headache Psych : No Anxiety/Panic, No Depression, No SI/HI/AH/VH, admits using heroin Heme/Lymph: No Bruising, No Bleeding,No Lymphadenopathy Endocrine : No Polyuria, No Polydipsia, No Temperature Intolerance [facility] Past Medical History Medical History Cocaine use disorder, severe, dependence Polysubstance (including opioids) dependence w/o physiol dependence Diabetes Seizure disorder Social History Social History Household Members: Unknown / Unable to assess Housing: Unknown / Unable to assess Unable to assess alcohol history related to: Unknown and Refusing to respond Patient Tobacco Use Status: Tobacco use Unknown Use of substances other than those prescribed or required for medical reasons: Yes Substance Use Type: Crack/Cocaine and Marijuana Advance Directives: No Advance Directives Information Provided: No service: No Current occupational status: unemployed Physical Exam Vital Signs: Vital Signs: Last Vital Signs Temp 97.8 F 06/20/23 18:06 Pulse 66 06/20/23 18:06 Resp 16 06/20/23 18:06 BP 127/75 06/20/23 18:06 Pulse Ox 99 06/20/23 18:06 O2 Del Method Room Air 06/20/23 18:06 BMI result Body Mass Index 21.7 HEENT: Other: Appearance: Alert. Oriented X3. No acute distress. Somnolent but easily arousable Eyes: Pupils equal, round and reactive to light. ENT: Pharynx normal. Neck: Normal inspection. Neck supple. No lymph nodes noted. No crepitus CVS: Normal heart rate and rhythm. Pulses normal. Normal S1 and S2 Respiratory: No respiratory distress. Breath sounds normal. No Wheezing. No rales Abdomen: Soft and nontender. No rigidity. No distention. Skin: Skin warm and dry. Normal skin color. Normal skin turgor. Extremities: No lower extremity edema. No Lacerations. No Rash Neuro: Oriented X 3. No motor deficit. No sensory deficit. Moving all extremities. No slurred speech. CN 2 through 12 grossly intact Psych: calm, cooperative, normal affect Course Course Course Narrative: -plan: Metabolized to freedom -chest x-ray pending to rule out potential rib fractures, patient received bystander CPR -when patient is awake, patient to be discharged with Narcan -when more awake, patient will be offered care/sude eval -physician observation started at 19:30 Medical Decision Making Medical Decision Making [facility] Narrative: -patient is awake and alert, patient resting to be discharged. -vitals are stable -my interpretation of chest x-ray: No fracture, radiology report not available, patient does not want to wait and wants to be discharged Differential Diagnosis Differential Diagnoses: The differential diagnosis associated with the presentation includes (Overdose) Independent Interpretation I performed an independent interpretation of an: Plain X-Ray Critical Care Time Critical Care Time Critical Care Time: Yes Total Critical Care Time: 60 Attestation: I have personally provided critical care time. Time includes review of lab data, radiology results, discussion with consultants, and monitoring for potential decompensation. Intervention performed as documented. Discharge Plan Discharge Clinical Impression: Accidental overdose Patient Disposition: Home, Self-Care Instructions: Adult Overdose (ED) Additional Instructions: Please follow-up with your primary care physician tomorrow. If you have any worsening or new symptoms, please return to the emergency room or call 911 Prescriptions: No Action levetiracetam 500 mg Tablet 500 mg PO BID 30 Days Qty: 60 0RF azithromycin 250 mg tablet 250 mg PO DAILY 5 Days Qty: 5 0RF cefuroxime axetil 500 mg tablet 500 mg PO BID 5 Days Qty: 10 0RF permethrin 5 % cream 1 appl topical Q14D Qty: 60 0RF Rx Instructions: apply second treatment 14 days after first treatment if live lice remain doxycycline hyclate 100 mg tablet 100 mg PO BID Qty: 20 0RF hydroxyzine HCl 25 mg tablet 25 mg PO Q6-8H PRN (Reason: itching) Qty: 30 0RF
[2023-06-20] MEDS: Naloxone HCl Nasal TAKE HOME 4 MG SPRAY 8 MG NOSTRILALT (20:09)
[2023-06-20 20:17] VITALS: BP 150/55; PULSE 60; RESP 18; O2SAT 100
== END 2023-06-20 20:18 | disposition home or self-care (01) ==
PROVIDERS: Emergency Provider Emergency Medicine
DX: R40.4 Transient alteration of awareness (principal); T40.1X1A Poisoning by heroin, accidental (unintentional), initial encounter; R11.0 Nausea; F14.20 Cocaine dependence, uncomplicated; F19.20 Other psychoactive substance dependence, uncomplicated; Y92.830 Public park as the place of occurrence of the external cause; E11.9 Type 2 diabetes mellitus without complications; Z79.899 Other long term (current) drug therapy
CPT/HCPCS: 71045; 99283; 99284

== ENCOUNTER 2023-11-24 10:53 | Emergency (ER) | payer OTHER, SELFPAY ==
--- NOTE | ~2023-11-24 | XR_ITS ---
EXAMINATION: XR CHEST CLINICAL INFORMATION: Shortness of breath COMPARISON: Previous chest x-ray June 2023 TECHNIQUE: 2 views of the chest were obtained. FINDINGS: No significant abnormality is noted involving the heart, lungs, mediastinum, bony thorax or soft tissues. XR/XR chest 2V IMPRESSION: Unremarkable examination.
[2023-11-24 11:03] VITALS: BP 111/66; PULSE 76; RESP 13; TEMP 36.8; O2SAT 100
[2023-11-24 11:22] VITALS: TEMP 37.4; BMI 23.9
[2023-11-24 12:26] LABS: Appearance Urine Clear; Color Urine Yellow; Glucose Urine UA Negative (Negative); Leukocyte Esterase Urine Small (1+) (Negative); Nitrite Urine Negative (Negative); Specific Gravity - Urine <= 1.005 (1.005-1.025); UMIC TRIGGER UACC YES; Urine Blood Negative (Negative); Urine Ketones Negative (Negative); Urine Protein Negative (Neg-Trace)
[2023-11-24 12:27] LABS: UPreg QC Valid YES; Urine Pregnancy NEGATIVE (NEGATIVE)
[2023-11-24 12:31] LABS: Amphetamine Screen Urine Not Detected (Not Detect); Bacteria Urine Trace (None Seen); Barbiturates, Urine Not Detected (Not Detect); Benzodiazepines Screen Urine Not Detected (Not Detect); Cannabinoid Screen Urine POSITIVE (Not Detect); Cocaine Screen Urine POSITIVE (Not Detect); Fentanyl, urine Not Detected (Not Detect); Hyaline Casts Urine 0-2 /LPF (0-2); Opiate Screen Urine Not Detected (Not Detect); Phencyclidine Screen Urine Not Detected (Not Detect); RBC Urine 0-2 /HPF (0-2); UACC Culture Trigger YES
[2023-11-24 13:00] VITALS: BP 111/62; PULSE 75; RESP 24; TEMP 36.8; O2SAT 99
--- NOTE | 2023-11-24 13:13 | ED.GENADULT ---
HPI - General Adult General Chief complaint: Fever Stated complaint: SEIZURE Time Seen by Provider: 11/24/23 13:08 History of Present Illness HPI narrative: 43 y/o F patient; PMH polysubstance abuse (marijuana, cocaine), seizure disorder prescribed Keppra; presents from home with report of 2 days of fever, cough productive of yellow/green mucus, central chest heaviness radiating into her upper back. Associated with two witnessed episodes of tonic-clonic seizure activity. The patient states her last cocaine use was 2 days ago when she smoked it. She denies ever using IV drugs. She states she came from [place] to [place] approximately one year ago. She has not seen a neurologist in this time and has not taken her Keppra in this time. She typically has 2 seizure a month, but this month has had 6 seizures. She reports nicotine use but denies alcohol use. She denies: diarrhea, vomiting, palpitations, known sick contacts. Related Data Previous Rx's Medication Instructions Recorded azithromycin 250 mg tablet 250 mg PO DAILY 5 days #5 tabs 11/04/22 cefuroxime axetil 500 mg tablet 500 mg PO BID 5 days #10 tabs 11/04/22 levetiracetam 500 mg tablet 500 mg PO BID 30 days #60 tabs 11/04/22 doxycycline hyclate 100 mg tablet 100 mg PO BID #20 tabs 04/26/23 hydroxyzine HCl 25 mg tablet 25 mg PO Q6-8H PRN itching #30 tabs 04/26/23 permethrin 5 % topical cream 1 appl topical Q14D 2 doses #60 04/26/23 grams levetiracetam 500 mg tablet 500 mg PO BID 30 days #60 tabs 11/24/23 (Keppra) Allergies Allergy/AdvReac Type Severity Reaction Status Date / Time No Known Allergies Allergy Verified 11/24/23 11:22 Review of Systems Review of Systems: Yes all other systems are reviewed and are negative Neurologic: Denies Sensory deficit (Neuro) PMFSH Past Medical History Attestation statement: The following information was validated with the patient. Source: old records reviewed Medical History Cocaine use disorder, severe, dependence Polysubstance (including opioids) dependence w/o physiol dependence Diabetes Seizure disorder Social History Social History Household Members: Unknown / Unable to assess Housing: Unknown / Unable to assess Unable to assess alcohol history related to: Unknown and Refusing to respond Patient Tobacco Use Status: Tobacco use Unknown Substance Use Type: Crack/Cocaine and Marijuana Advance Directives: No Advance Directives Information Provided: No service: No Current occupational status: unemployed Physical Exam ED Vital Signs: Vital Signs - 24 hr 11/24/23 11:03 11/24/23 11:22 11/24/23 13:00 Temperature 98.3 F 99.4 F 98.3 F Pulse Rate 76 75 Respiratory Rate 13 24 H Blood Pressure 111/66 111/62 Pulse Oximetry 100 99 Oxygen Delivery Method Room Air Room Air BMI result Body Mass Index 23.9 Patient is afebrile and hemodynamically stable. Const General: cooperative and no acute distress Orientation/consciousness: patient oriented x3 HENMT Head: Yes atraumatic Eyes General: appearance normal, both eyes and all related structures Neck Neck: Yes normal visual inspection, Yes full ROM, Yes supple and No tender Chest Chest palpation & inspection: normal inspection of the chest and normal palpation of entire chest wall Resp Effort & Inspection: normal respiratory effort, able to speak in complete sentences, Actively coughing and no respiratory distress Auscultation: clear to auscultation bilaterally Cardio Rate: regular rate Rhythm: regular rhythm Peripheral pulses: Peripheral pulses 2+ throughout GI Inspection: Yes normal to inspection, No Abdominal wall edema and No distended Palpation (GI): Soft to palpation, not firm, nontender, no guarding and not rigid Auscultation: normal bowel sounds General: Yes no CVA tenderness Back/Spine/Pelvis Back: no CVA tenderness Neuro General: patient oriented x3 and moves all extremities Sensory Exam: No Sensory deficit (Neuro) Course Course Course Narrative: Patient is afebrile and hemodynamically stable. Reviewed prior ordered studies including: urine drug screen, UA, upreg. Urine drug screen positive for marijuana and cocaine which patient noted recent use. Upregnancy is negative. UA is unremarkable - patient denies frequency, dysuria, or hematuria. Primary areas of concern: 1) Multiple described tonic-clonic seizures not currently on anti-epileptics (previously prescribed Keppra 500mg BID), not currently followed by Neurology -Will load patient with Keppra 1g PO, prescribed home Keppra 500mg BID, and refer patient to Neurology 2) Fever of unknown origin: -Associated cough, congestion, chest pain, and back pain -No tachycardia, no hypoxia -Will obtain CXR, respiratory swab, basic labs including troponin -Will provide Tylenol 975mg PO for chest/back pain -Possible: viral illness, pneumonia, ACS, ARDS 2/2 cocaine smoking -Less likely: endocarditis (patient denies any lifetime use of IV drugs), pulmonary embolism (patient denies recent surgery, immobilization, prior PE/DVT, hx hemoptysis - patient is also without tachycardia or hypoxia). Reevaluation(s) Reevaluation #1: CXR unremarkable Time: 13:40 Reevaluation #2: Respiratory swab positive for influenza. Discussed Tamiflu with patient who would prefer to decline at this time. History, examination, and laboratory studies consistent with influenza without evidence of overlying bacterial infection. Patient is ambulatory without dyspnea or hypoxia. Plan: Discharge to home with PCP and Neurology follow up Return precautions given Rx Keppra sent to pharmacy Time: 14:39 Medications Administered Discontinued Medications Generic Name Dose Route Start Last Admin Trade Name Freq PRN Reason Stop Dose Admin Acetaminophen 975 mg 11/24/23 13:23 11/24/23 13:46 Acetaminophen 325 Mg Tablet PO 11/24/23 13:24 975 mg ONCE ONE Administration Sodium Chloride 1,000 mls @ 999 mls/hr 11/24/23 13:30 11/24/23 13:47 Ns IV 11/24/23 14:30 999 mls/hr .Q1H1M PILY Administration Levetiracetam 1,000 mg 11/24/23 13:23 11/24/23 13:46 Levetiracetam 1,000 Mg Tablet PO 11/24/23 13:24 1,000 mg ONCE ONE Administration Medical Decision Making Lab Data 11/24/23 13:42 11/24/23 13:42 Labs: Lab Results 11/24/23 11/24/23 Range/Units 12:14 13:42 WBC 10.3 (4.8-10.8) X10*3/uL RBC 4.60 (4.20-5.50) X10*6/uL Hgb 13.8 (12.0-16.0) g/dl Hct 41.6 (37.0-47.0) % MCV 90.4 (80.0-98.0) fL MCH 30.0 (27.0-33.0) pg MCHC 33.2 (31.0-35.0) g/dl RDW 13.6 (11.0-16.0) % Plt Count 260 (160-400) X10*3/uL MPV 9.6 (9.4-12.3) fL Immature Gran % (Auto) 0.5 H (0.0-0.4) % Neut % (Auto) 84.6 H (45-73) % Lymph % (Auto) 6.7 L (20-40) % [place] % (Auto) 7.8 (2-11) % Eos % (Auto) 0.1 (0-4) % Baso % (Auto) 0.3 (0-2) % Lymph # (Auto) 0.7 L (1.2-4.9) X10*3/uL [place] # (Auto) 0.8 (0.1-1.2) X10*3/uL Eos # (Auto) 0.0 (0.0-0.4) X10*3/uL Baso # (Auto) 0.0 (0.0-0.2) X10*3/uL Abs Immat Gran (auto) 0.05 H (0.00-0.03) X10*3/uL Absolute Neuts (auto) 8.7 H (2.0-8.3) x10*3/uL Absolute Nucleated RBC 0.000 (0.0-0.012) X10*3/uL Nucleated RBC % (auto) 0.0 (0.0-0.2) /100WBC Sodium 136 (135-145) mmol/L Potassium 3.7 (3.3-5.1) mmol/L Chloride 103 (96-108) mmol/L Carbon Dioxide 26 (22-29) mmol/L Anion Gap 11 L (12-20) BUN 8 L (9-16) mg/dL Creatinine 0.70 (0.5-1.4) mg/dL Estim Creat Clear Calc 81.0 Estimated GFR > 60 Random Glucose 87 (60-115) mg/dL Calcium 9.0 (8.4-10.2) mg/dL Total Bilirubin 0.2 (0.0-1.0) mg/dL Direct Bilirubin < 0.2 (0.0-0.5) mg/dL AST 19 (5-31) U/L ALT 14 (0-31) U/L Alkaline Phosphatase 83 (39-117) U/L Troponin I High Sens < 2.7 D (<3.5-17.0) ng/L Total Protein 7.5 (6.5-8.0) g/dL Albumin 4.3 (3.5-5.0) g/dL Lipase 30 (8-78) U/L Urine Color Yellow Urine Appearance Clear Urine pH 6.0 (5.0-9.0) Ur Specific [place] <= 1.005 (1.005-1.025) Urine Protein Negative (Neg-Trace) mg/dL Urine Glucose (UA) Negative (Negative) mg/dL Urine Ketones Negative (Negative) mg/dL Urine Blood Negative (Negative) Urine Nitrite Negative (Negative) Ur Leukocyte Esterase Small (1+) H (Negative) Urine RBC 0-2 (0-2) /HPF Urine WBC 6-10 H (0-5) /HPF Ur Squamous Epith Cells 6-10 (0-2) /HPF Urine Bacteria Trace (None Seen) Hyaline Casts 0-2 (0-2) /LPF Urine Test NEGATIVE (NEGATIVE) Urine Opiates Screen Not Detected (Not Detect) Urine Fentanyl Screen Not Detected (Not Detect) Ur Barbiturates Screen Not Detected (Not Detect) Ur Phencyclidine Scrn Not Detected (Not Detect) Ur Amphetamines Screen Not Detected (Not Detect) U Benzodiazepines Scrn Not Detected (Not Detect) Urine Cocaine Screen POSITIVE H (Not Detect) U Marijuana (THC) Screen POSITIVE H (Not Detect) Influenza Type A (PCR) POSITIVE A (Negative) Influenza Type B (PCR) NEGATIVE (Negative) RSV RNA Qual (PCR) NEGATIVE (Negative) SARS-CoV-2 RNA (RT-PCR) NEGATIVE (Negative) Independent Interpretation I performed an independent interpretation of an: EKG Interpretation: NSR 68BPM without ischemic changes, normal intervals Radiology Impression Discussion of test interpretation with radiology: I have reviewed the radiologist's reading. Radiologist Impression: EXAMINATION: XR CHEST CLINICAL INFORMATION: Shortness of breath COMPARISON: Previous chest x-ray June 2023 TECHNIQUE: 2 views of the chest were obtained. FINDINGS: No significant abnormality is noted involving the heart, lungs, mediastinum, bony thorax or soft tissues. XR/XR chest 2V IMPRESSION: Unremarkable examination. Discharge Plan Discharge Clinical Impression: Seizure disorder, Influenza Patient Disposition: Home, Self-Care Instructions: Influenza (DC) Additional Instructions: As we discussed, you were seen today for upper respiratory symptoms and found to be positive for influenza (the 'flu'). Your XR did not show pneumonia. You were provided Keppra in the emergency department and a prescription was sent to the [facility] pharmacy on [address] [facility]. Please take this as prescribed. Follow up with Neurology within the next 1 week. Return to the emergency department for: -Difficulty breathing -Chest pain -Passing out -Further seizure activity Prescriptions: New levetiracetam [Keppra] 500 mg tablet 500 mg PO BID 30 Days Qty: 60 0RF No Action levetiracetam 500 mg Tablet 500 mg PO BID 30 Days Qty: 60 0RF azithromycin 250 mg tablet 250 mg PO DAILY 5 Days Qty: 5 0RF cefuroxime axetil 500 mg tablet 500 mg PO BID 5 Days Qty: 10 0RF permethrin 5 % cream 1 appl topical Q14D Qty: 60 0RF Rx Instructions: apply second treatment 14 days after first treatment if live lice remain doxycycline hyclate 100 mg tablet 100 mg PO BID Qty: 20 0RF hydroxyzine HCl 25 mg tablet 25 mg PO Q6-8H PRN (Reason: itching) Qty: 30 0RF Referrals: [facility] [place] Neuro/Sleep [Provider Group] - 1 week
--- NOTE | 2023-11-24 13:30 | ECG_ITS ---
Test Reason : chest pain Blood Pressure : / mmHG Vent. Rate : 068 BPM Atrial Rate : 068 BPM P-R Int : 150 ms QRS Dur : 082 ms QT Int : 414 ms P-R-T Axes : 067 067 044 degrees QTc Int : 440 ms Normal sinus rhythm Minimal voltage criteria for LVH, may be normal variant ( Sokolow-Paz ) Borderline ECG When compared with ECG of 03-NOV-2022 08:54, No significant change was found Referred By: Dionna Portillo Electronically Signed By:SYLVIE XIAO MD
[2023-11-24] MEDS: Acetaminophen 325 MG TABLET 975 MG PO (13:46)
[2023-11-24] MEDS: levETIRAcetam 1,000 MG TABLET 1000 MG PO (13:46)
[2023-11-24] MEDS: 0.9 % Sodium Chloride 1,000 ML 999 ML IV (13:47)
[2023-11-24 13:48] LABS: Basophils Percent Auto 0.3 % (0-2); Eosinophils Percent Auto 0.1 % (0-4); Hematocrit 41.6 % (37.0-47.0); Hemoglobin 13.8 g/dl (12.0-16.0); Imm Gran Abs Auto 0.05 X10*3/uL (0.00-0.03); Imm Gran Pct Auto 0.5 % (0.0-0.4); Lymphocytes Absolute Auto 0.7 X10*3/uL (1.2-4.9); Lymphocytes Percent Auto 6.7 % (20-40); MANUAL DIFF FLAG NO; Mean Corpuscular HGB Conc 33.2 g/dl (31.0-35.0); Mean Corpuscular Volume 90.4 fL (80.0-98.0); Mean Platelet Volume 9.6 fL (9.4-12.3); Monocytes Absolute Auto 0.8 X10*3/uL (0.1-1.2); Monocytes Percent Auto 7.8 % (2-11); Neutrophils Absolute Auto 8.7 x10*3/uL (2.0-8.3); Neutrophils Percent Auto 84.6 % (45-73); Platelet Count 260 X10*3/uL (160-400); Red Cell Distribution Width 13.6 % (11.0-16.0); White Blood Count 10.3 X10*3/uL (4.8-10.8)
[2023-11-24 14:06] LABS: Alanine Aminotransferase 14 U/L (0-31); Albumin Level 4.3 g/dL (3.5-5.0); Alkaline Phosphatase 83 U/L (39-117); Anion Gap 11 (12-20); Aspartate Amino Transferase 19 U/L (5-31); Bilirubin Direct < 0.2 mg/dL (0.0-0.5); Bilirubin Total 0.2 mg/dL (0.0-1.0); Blood Urea Nitrogen 8 mg/dL (9-16); Carbon Dioxide 26 mmol/L (22-29); Chloride 103 mmol/L (96-108); Estimated Glomerular Filt Rate > 60; Glucose Random 87 mg/dL (60-115); Lipase 30 U/L (8-78); Potassium 3.7 mmol/L (3.3-5.1); Sodium 136 mmol/L (135-145); Total Protein 7.5 g/dL (6.5-8.0)
[2023-11-24 14:09] LABS: Troponin-I High Sensitivity < 2.7 ng/L (<3.5-17.0)
[2023-11-24 14:33] LABS: Influenza A PCR POSITIVE (Negative); Influenza B PCR NEGATIVE (Negative); Resp Syncy Virus RNA Qual PCR NEGATIVE (Negative); SARS COV2 PCR INHOUSE NEGATIVE (Negative)
[2023-11-24 16:06] VITALS: BP 109/55; PULSE 84; RESP 18; TEMP 36.8; O2SAT 98
== END 2023-11-24 16:47 | disposition home or self-care (01) ==
PROVIDERS: Emergency Provider Emergency Medicine
DX: J10.1 Influenza due to other identified influenza virus with other respiratory manifestations (principal); G40.909 Epilepsy, unspecified, not intractable, without status epilepticus; T42.6X6A Underdosing of other antiepileptic and sedative-hypnotic drugs, initial encounter; Y92.9 Unspecified place or not applicable; R07.9 Chest pain, unspecified; R06.02 Shortness of breath; E11.9 Type 2 diabetes mellitus without complications; R50.9 Fever, unspecified; F14.929 Cocaine use, unspecified with intoxication, unspecified; F12.929 Cannabis use, unspecified with intoxication, unspecified; Z11.52 Encounter for screening for COVID-19
CPT/HCPCS: 0241U; 36415; 71046; 80048; 80076; 80307; 81001; 81025; 83690; 84484; 85025; 87086; 93005; 99284

== ENCOUNTER → 2023-11-24 13:30 | Outpatient (BNV) | payer OTHER, SELFPAY | PROVIDERS: Emergency Provider Emergency Medicine; Visit Provider Internal Medicine Cardiovascular Disease | DX: R07.9 Chest pain, unspecified (principal) | CPT/HCPCS: 93010 ==

== ENCOUNTER 2023-12-26 07:47 | Emergency (ER) | payer OTHER, SELFPAY ==
--- NOTE | ~2023-12-26 | CT_ITS ---
EXAMINATION: CT HEAD WITHOUT CONTRAST CT CERVICAL SPINE WITHOUT CONTRAST CLINICAL INFORMATION: Fall. Neck pain. Headache. COMPARISON: CT head 11/01/2022. TECHNIQUE: Air Cargo Specialist Supervisor images were obtained. CT imaging of the head and cervical spine was performed without contrast. Data was reformatted into multiplanar images at the acquisition workstation. This CT examination was performed using dose optimization techniques as appropriate, including one or more of the following: Automated exposure control, iterative reconstruction, and adjustment of technique factors (mA and/or kVp) according to patient size (this includes techniques or standardized protocols for targeted exams where dose is matched to indication/reason for exam). Fleischner Society criteria for the followup of incidental pulmonary nodules was implemented if appropriate. DLP: 962 mGy-cm. FINDINGS: Head: There is no acute intracranial hemorrhage or abnormal extra-axial collection. No intracranial mass effect or hydrocephalus. Oropeza-white matter differentiation is preserved and there is no evidence of acute atrial infarct. The calvarium and skull base are intact. Mastoid air cells and middle ear cavities are well aerated. There chronic changes of an old healed right orbital blowout fracture involving the right lamina papyracea. Mild to moderate paranasal sinus disease primarily affecting the right maxillary sinus and ethmoid air cells. Cervical spine: There is nonspecific reversal of the cervical lordosis. Alignment is otherwise normal. Vertebral body heights are preserved. No acute cervical spine fracture. No abnormal prevertebral soft tissue swelling. There is slight loss of intervertebral disc height with associated hypertrophic disc osteophyte spurring at multiple levels. There is a segmental ossification of the posterior longitudinal ligament at C3-C4. Canal patency is not well assessed on this examination due to inherent limitations of CT without intrathecal contrast. There is at least mild canal stenosis at C3-C4, C4-C5, and C5-C6. Visualized soft tissues of the neck are normal. Lung apices are clear. CT/CT head/brain wo IV con IMPRESSION: Head: No acute intracranial hemorrhage. There is no evidence of acute territorial infarct. Cervical Spine: No acute cervical spine fracture and no posttraumatic spinal subluxation. There is multilevel degenerative spondylosis of the cervical spine with segmental ossification of the posterior longitudinal ligament at C3-C4. There is at least mild canal stenosis at the levels of C3-C4, C4-C5, and C5-C6. If there are clinical symptoms of compressive myelopathy then a dedicated cervical spine MRI can be obtained for better anatomic characterization of the cord and canal.
--- NOTE | ~2023-12-26 | CT_ITS ---
EXAMINATION: CT HEAD WITHOUT CONTRAST CT CERVICAL SPINE WITHOUT CONTRAST CLINICAL INFORMATION: Fall. Neck pain. Headache. COMPARISON: CT head 11/01/2022. TECHNIQUE: Golf Caddie images were obtained. CT imaging of the head and cervical spine was performed without contrast. Data was reformatted into multiplanar images at the acquisition workstation. This CT examination was performed using dose optimization techniques as appropriate, including one or more of the following: Automated exposure control, iterative reconstruction, and adjustment of technique factors (mA and/or kVp) according to patient size (this includes techniques or standardized protocols for targeted exams where dose is matched to indication/reason for exam). Fleischner Society criteria for the followup of incidental pulmonary nodules was implemented if appropriate. DLP: 962 mGy-cm. FINDINGS: Head: There is no acute intracranial hemorrhage or abnormal extra-axial collection. No intracranial mass effect or hydrocephalus. Oropeza-white matter differentiation is preserved and there is no evidence of acute atrial infarct. The calvarium and skull base are intact. Mastoid air cells and middle ear cavities are well aerated. There chronic changes of an old healed right orbital blowout fracture involving the right lamina papyracea. Mild to moderate paranasal sinus disease primarily affecting the right maxillary sinus and ethmoid air cells. Cervical spine: There is nonspecific reversal of the cervical lordosis. Alignment is otherwise normal. Vertebral body heights are preserved. No acute cervical spine fracture. No abnormal prevertebral soft tissue swelling. There is slight loss of intervertebral disc height with associated hypertrophic disc osteophyte spurring at multiple levels. There is a segmental ossification of the posterior longitudinal ligament at C3-C4. Canal patency is not well assessed on this examination due to inherent limitations of CT without intrathecal contrast. There is at least mild canal stenosis at C3-C4, C4-C5, and C5-C6. Visualized soft tissues of the neck are normal. Lung apices are clear. CT/CT cervical spine wo IV con IMPRESSION: Head: No acute intracranial hemorrhage. There is no evidence of acute territorial infarct. Cervical Spine: No acute cervical spine fracture and no posttraumatic spinal subluxation. There is multilevel degenerative spondylosis of the cervical spine with segmental ossification of the posterior longitudinal ligament at C3-C4. There is at least mild canal stenosis at the levels of C3-C4, C4-C5, and C5-C6. If there are clinical symptoms of compressive myelopathy then a dedicated cervical spine MRI can be obtained for better anatomic characterization of the cord and canal.
--- NOTE | ~2023-12-26 | CT_ITS ---
EXAMINATION: CT CHEST, ABDOMEN AND PELVIS WITH CONTRAST. CLINICAL INFORMATION: Fall with chest and abdominal trauma.. COMPARISON: CT chest 11/01/2022. TECHNIQUE: Multidetector volumetric imaging was performed from the thoracic inlet through the pubic symphysis following the administration of: Oral contrast: No Intravenous contrast: 85 mL Omnipaque 350 No contrast reaction reported Sagittal and coronal reformatted images were obtained on the technologist workstation. In addition, thin section, high resolution reconstruction, targeted reformatted images through the thoracic and lumbar spine were obtained with coronal and sagittal high resolution reformatted images as well. This CT examination was performed using dose optimization techniques as appropriate, variously including the following: *Automated exposure control *Adjustment of mA and/or kV according to patient size (this includes techniques or standardized protocols for targeted exams where dose is matched to indication/reason for exam; i.e. extremities or head) *Use of iterative reconstruction technique Total exam dose-length product 336 mGy-cm FINDINGS: CHEST: VASCULAR: The aorta is normal; no evidence of dissection, aneurysm, or traumatic aortic injury. The central pulmonary arteries enhance normally. AORTIC ISTHMUS: Normal. MEDIASTINUM: No mediastinal fluid or hematoma. No hilar or mediastinal lymphadenopathy. LUNG: Previously seen dense consolidation in the right upper lobe and right lower lobe has cleared. Emphysematous changes are present. Some subpleural cysts are seen. Moderate bronchial wall thickening is present. Bibasilar atelectasis is seen. No lung masses are seen. PLEURA: No pleural effusion. No pneumothorax. No pleural mass or thickening. CHEST WALL/AXILLA: Unremarkable. ABDOMEN/PELVIS : LIVER : The liver is normal in size, shape, and attenuation. No focal hepatic lesion or biliary ductal dilatation is present. GALLBLADDER, AND BILIARY TREE : The gallbladder is contracted with a slightly thickened wall but no obvious pericholecystic inflammatory changes. PANCREAS: Normal; no mass or surrounding fluid. SPLEEN: Normal size. No focal lesion. ADRENAL GLANDS: Normal; no mass. KIDNEYS AND URETERS: The kidneys are normal in size, shape, and attenuation. Nonobstructing mid right renal calculus. No hydronephrosis, hydroureter, or additional calculi. URINARY BLADDER: No focal mass or wall thickening seen. No bladder calculi. GASTROINTESTINAL TRACT: Stomach and small bowel non-dilated. No colonic wall thickening or pericolonic inflammatory changes. Normal appendix. VASCULAR STRUCTURES: There is no evidence of aortic or iliac injury. The inferior vena cava is intact. ACTIVE BLEEDING: None LYMPH NODES: No lymphadenopathy. The aorta is unremarkable. PELVIC VISCERA: Normal CT appearance of the uterus. No adnexal mass seen. Fallopian tube occlusion devices are present. FREE FLUID: None. ABDOMINAL WALL: No significant hernia is appreciated. OSSEOUS STRUCTURES : No clavicle or scapula fracture. No displaced rib fracture seen. No sternal fracture seen. Normal sagittal alignment of the thoracic and lumbar spine. Vertebral body and disc heights are maintained with the exception of degenerative changes at L4-L5.; no compression fracture. Posterior elements intact. No sacral or pelvic fracture, The visualized hips are intact. CT/CT abdomen pelvis w IV con IMPRESSION: 1. No evidence of traumatic injury in the chest, abdomen or pelvis. 2. Incidental note made of emphysema, nonobstructing right renal calculus and degenerative changes in the spine.
--- NOTE | 2023-12-26 08:00 | PC.NURSE ---
PT IS A/O X 4 NO SOB/ADRIEL NOTED SPEAKS IN FULL SENTENCES. PT HAS A C-COLLAR IN PLACE. C/O NECK AND KAIT ARMS PAIN 10/10. PT AWARE OF PLAN OF CARE. WILL CONTINUE TO MONITOR.
[2023-12-26 08:05] VITALS: BP 104/62; BP 99/57; PULSE 72; PULSE 82; RESP 16; TEMP 36.9; O2SAT 100; O2SAT 97; BMI 22.5
--- NOTE | 2023-12-26 08:08 | ECG_ITS ---
Test Reason : fall Blood Pressure : / mmHG Vent. Rate : 071 BPM Atrial Rate : 071 BPM P-R Int : 132 ms QRS Dur : 086 ms QT Int : 396 ms P-R-T Axes : 071 079 060 degrees QTc Int : 430 ms Normal sinus rhythm Possible Left atrial enlargement Borderline ECG When compared with ECG of 24-NOV-2023 14:02, No significant change was found Referred By: Abraham Greenberg Electronically Signed By:Adam Graham
--- NOTE | 2023-12-26 08:12 | ED_ITS ---
HPI - General Adult General Chief complaint: General Medical Stated complaint: NECK BACK ARM PAIN SEIZURE 2 DAYS AGO Time Seen by Provider: 12/26/23 07:51 Source: patient Mode of arrival: ambulatory Limitations: no limitations History of Present Illness HPI narrative: 43 year old female hx of polysubstance abuse, seizure d/o, presenting w/ neck pain, lower back pain, headache s/p seizure at some point last night around 11pm. Patient remembers looking at her watch slightly before 11 am and reports waking up at some point this am after being found by her son. She is not on thinners. reports she hurts all over. Denies preceding sx to fall. No cp, sob, nausea, vomiting, headache, vision changes, dizziness, abd pain, dizziness, weakness. Related Data Previous Rx's Medication Instructions Recorded azithromycin 250 mg tablet 250 mg PO DAILY 5 days #5 tabs 11/04/22 cefuroxime axetil 500 mg tablet 500 mg PO BID 5 days #10 tabs 11/04/22 levetiracetam 500 mg tablet 500 mg PO BID 30 days #60 tabs 11/04/22 doxycycline hyclate 100 mg tablet 100 mg PO BID #20 tabs 04/26/23 hydroxyzine HCl 25 mg tablet 25 mg PO Q6-8H PRN itching #30 tabs 04/26/23 permethrin 5 % topical cream 1 appl topical Q14D 2 doses #60 04/26/23 grams levetiracetam 500 mg tablet 500 mg PO BID 30 days #60 tabs 11/24/23 (Keppra) ketorolac 10 mg tablet 10 mg PO TID PRN pain 5 days #15 12/26/23 tabs lidocaine 5 % topical patch 1 patch topical DAILY PRN pain #15 12/26/23 ea Allergies Allergy/AdvReac Type Severity Reaction Status Date / Time No Known Allergies Allergy Verified 11/24/23 11:22 Review of Systems 2 Review of Systems: Yes all other systems are reviewed and are negative PMFSH Past Medical History Attestation statement: The following information was validated with the patient. Source: old records reviewed and nursing notes reviewed Medical History Cocaine use disorder, severe, dependence Polysubstance (including opioids) dependence w/o physiol dependence Diabetes Seizure disorder Social History Social History Household Members: Unknown / Unable to assess Housing: Unknown / Unable to assess Unable to assess alcohol history related to: Unknown and Refusing to respond Patient Tobacco Use Status: Tobacco use Unknown Smoked in Last 30 Days: Yes Substance Use Type: Crack/Cocaine Advance Directives: No Advance Directives Information Provided: Yes Patient : No service: No Current occupational status: unemployed Physical Exam ED Vital Signs: Vital Signs - 24 hr 12/26/23 08:05 12/26/23 10:04 12/26/23 10:26 Temperature 98.5 F 98.5 F 98.1 F Pulse Rate 82 82 60 Respiratory Rate 16 16 16 Blood Pressure 99/57 L 99/57 L 113/72 Pulse Oximetry 97 97 100 Oxygen Delivery Method Room Air Room Air Room Air BMI result Body Mass Index 22.5 vss Appearance: Alert.? Oriented X3.? No acute distress.? Head: Normocephalic, atraumatic, no step-offs or deformities Eyes: Pupils equal, round and reactive to light.? Neck: Normal inspection.? Neck supple.?+ cspine tenderness throughout CVS: Normal heart rate and rhythm.? Pulses normal.? Respiratory: No respiratory distress.? Breath sounds normal.? Abdomen: Soft and nontender.? Skin: Skin warm and dry.? Normal skin color.? Normal skin turgor.? Extremities: No lower extremity edema.? No calf ttp. 5/5 strength to bilateral upper and lower extremities. 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 Normal sensation distally. Back: No midline tenderness, no C-spine tenderness, full range of motion, no CVA tenderness bilaterally Neuro: Oriented X 3.? No motor deficit.? No sensory deficit. CN 2-12 intact . Ambulating w/ steady gait normal coordination. Course Reevaluation(s) Reevaluation #1: CBC unremarkable. Chemistry no acute findings requiring intervention. CPK 557, a L fluids given. Troponin negative, nonischemic EKG. Patient's ethanol negative. Patient reports improvement after Toradol. Time: 11:30 Reevaluation #2: CT head with no acute intracranial hemorrhage no evidence of acute infarction. Cervical spine no acute fractures or post traumatic spinal subluxations. 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 It mild canal stenosis of C3 through C5. And C5 through C6. No signs of cervical myelopathy at this time. No signs of traumatic injury in the chest, abdomen or pelvis. Incidental note made of emphysema nonobstructing right renal calculus. Degenerative changes in the spine. Will have her follow-up with spine and sport/neuro spine. As she does report chronic back pain. Patient ambulatory, eating and drinking. Well-appearing and reports she feels better will be discharged home with Toradol and Lidoderm patch. NO cp sob or back pain at time of d/c only mild neck pain w/ intermittent radiation to RUE, no weaknesss. Educated patient on diagnosis and treatment plan, answered all question, patient verbalizes understanding. At this time patient will be discharged home, advised to return with new or worsening symptoms. Educated on worrisome signs and symptoms and when to return. At this time I feel comfortable discharge home. Time: 12:51 Medications Administered Discontinued Medications Generic Name Dose Route Start Last Admin Trade Name Negro PRN Reason Stop Dose Admin Sodium Chloride 1,000 mls @ 999 mls/hr 12/26/23 08:30 12/26/23 10:50 Ns IV 12/26/23 09:30 Infused .Q1H1M PILY Infusion Iohexol 100 ml 12/26/23 11:22 12/26/23 11:22 Iohexol 350 Mg/Ml 100 Ml Infus..Btl IV 12/26/23 11:23 85 ml ONCE ONE Administration Ketorolac Tromethamine 30 mg 12/26/23 08:17 12/26/23 09:49 Ketorolac Tromethamine 30 Mg/Ml Vial IVPUSH 12/26/23 08:18 30 mg ONCE ONE Administration Medical Decision Making Medical Decision Making [facility] Narrative: 0810 43 year old female present w/ neck pain, headache, lower back pain, light headedness s/p fall from seizure PE- patient in a collar, + cspine pain. History and physical exam concerning for neck sprain or strain. Unlikely fracture, dislocation. Unlikely intracranial hemorrhage, stroke posterior stroke. No signs of traumatic injury to chest, abdomen or pelvis. Will rule out electrolyte abnormalities, UTI although unlikely. No lower back pain on my exam unlikely cauda equina, cord compression, epidural abscess. No signs of cervical myelopathy . I do not suspect PE, ACS, dissection, HCOM NIHSS- 0 Plan- imaging, labs, ua Differential Diagnosis Differential Diagnoses: The differential diagnosis associated with the presentation includes History and physical exam concerning for neck sprain or strain. Unlikely fracture, dislocation. Unlikely intracranial hemorrhage, stroke posterior stroke. No signs of traumatic injury to chest, abdomen or pelvis. Will rule out electrolyte abnormalities, UTI although unlikely. No lower back pain on my exam unlikely cauda equina, cord compression, epidural abscess. No signs of cervical myelopathy . I do not suspect PE, ACS, dissection, HCOM Admission/Observation Consideration of admission/observation: Escalation of care including admission/observation considered Lab Data MDM Lab Attestation statement: I reviewed the patient's lab results. 12/26/23 09:14 12/26/23 09:14 Labs: Lab Results 12/26/23 Range/Units 09:14 WBC 8.3 (4.8-10.8) X10*3/uL RBC 4.65 (4.20-5.50) X10*6/uL Hgb 13.9 (12.0-16.0) g/dl Hct 41.7 (37.0-47.0) % MCV 89.7 (80.0-98.0) fL MCH 29.9 (27.0-33.0) pg MCHC 33.3 (31.0-35.0) g/dl RDW 14.3 (11.0-16.0) % Plt Count 288 (160-400) X10*3/uL MPV 9.3 L (9.4-12.3) fL Immature Gran % (Auto) 0.2 (0.0-0.4) % Neut % (Auto) 56.1 (45-73) % Lymph % (Auto) 28.6 (20-40) % [place] % (Auto) 12.4 H (2-11) % Eos % (Auto) 1.9 (0-4) % Baso % (Auto) 0.8 (0-2) % Lymph # (Auto) 2.4 (1.2-4.9) X10*3/uL [place] # (Auto) 1.0 (0.1-1.2) X10*3/uL Eos # (Auto) 0.2 (0.0-0.4) X10*3/uL Baso # (Auto) 0.1 (0.0-0.2) X10*3/uL Abs Immat Gran (auto) 0.02 (0.00-0.03) X10*3/uL Absolute Neuts (auto) 4.6 (2.0-8.3) x10*3/uL Absolute Nucleated RBC 0.000 (0.0-0.012) X10*3/uL Nucleated RBC % (auto) 0.0 (0.0-0.2) /100WBC Sodium 142 (135-145) mmol/L Potassium 4.6 D (3.3-5.1) mmol/L Chloride 108 (96-108) mmol/L Carbon Dioxide 28 (22-29) mmol/L Anion Gap 11 L (12-20) BUN 20 H (9-16) mg/dL Creatinine 0.73 (0.5-1.4) mg/dL Estim Creat Clear Calc 75.0 Estimated GFR > 60 Random Glucose 92 (60-115) mg/dL Calcium 9.3 (8.4-10.2) mg/dL Magnesium 2.1 (1.6-2.6) mg/dL Total Bilirubin 0.2 (0.0-1.0) mg/dL AST 19 (5-31) U/L ALT 11 (0-31) U/L Alkaline Phosphatase 76 (39-117) U/L Total Creatine Kinase 557 H (26-140) U/L Troponin I High Sens < 2.7 (<3.5-17.0) ng/L Total Protein 7.1 (6.5-8.0) g/dL Albumin 4.0 (3.5-5.0) g/dL Ethyl Alcohol < 10 mg/dL Independent Interpretation I performed an independent interpretation of an: EKG (Vent. Rate : 071 BPM Atrial Rate : 071 BPM P-R Int : 132 ms QRS Dur : 086 ms QT Int : 396 ms P-R-T Axes : 071 079 060 degrees QTc Int : 430 ms Normal sinus rhythm Possible Left atrial enlargement Borderline ECG When compared with ECG of 24-NOV-2023 14:02, No significan) and CT Scan (CT/CT head/brain wo IV con IMPRESSION: Head: No acute intracranial hemorrhage. There is no evidence of acute territorial infarct. Cervical Spine: No acute cervical spine fracture and no posttraumatic spinal subluxation. There is multilevel degenerative spondylosis of the cervical spine with segmen) Interpretation: CT/CT chest w IV con IMPRESSION: 1. No evidence of traumatic injury in the chest, abdomen or pelvis. 2. Incidental note made of emphysema, nonobstructing right renal calculus and degenerative changes in the spine. Radiology Impression Discussion of test interpretation with radiology: I have reviewed the radiologist's reading. Prescription Management I considered prescription management with: Pain Medication (toradol ) Chronic Conditions Patient?s care impacted by: Other (polysubstance abuse ) Critical Care Time Critical Care Time Critical Care Time: Yes Total Critical Care Time: 35 Attestation: I attest to this time spent taking care of the patient, obtaining history, physical, reviewing labs, imaging, speaking to my attending Discharge Plan Discharge Clinical Impression: Seizure disorder, Fall, Neck pain, Headache, Concussion, Kidney stone Patient Disposition: Home, Self-Care Instructions: Concussion (ED), Acute Headache (ED), Post Concussion Syndrome (ED), Fall Prevention (ED), Neck Pain (ED) Additional Instructions: Take your medications as prescribed. If you were prescribed antibiotics today, it is important that you take your medication to their entirety, do not skip any doses, do not finish them early. Follow-up with your primary care provider this week. Return to the emergency department with new or worsening symptoms. Such as fevers, chills, chest pain, shortness of breath, nausea, vomiting, dizziness, headache, vision changes, lethargy In case of emergency call 911 Toradol has been sent to your pharmacy, you tolerated this well in the department. Please take this as prescribed do not take this with ibuprofen, or other NSAIDs, do not mix this with alcohol. Side effects of this medication including increased risk for bleeding and possible kidney injury. CT/CT head/brain wo IV con IMPRESSION: Head: No acute intracranial hemorrhage. There is no evidence of acute territorial infarct. Cervical Spine: No acute cervical spine fracture and no posttraumatic spinal subluxation. There is multilevel degenerative spondylosis of the cervical spine with segmental ossification of the posterior longitudinal ligament at C3-C4. There is at least mild canal stenosis at the levels of C3-C4, C4-C5, and C5-C6. If there are clinical symptoms of compressive myelopathy then a dedicated cervical spine MRI can be obtained for better anatomic characterization of the cord and canal. CT/CT chest w IV con IMPRESSION: 1. No evidence of traumatic injury in the chest, abdomen or pelvis. 2. Incidental note made of emphysema, nonobstructing right renal calculus and degenerative changes in the spine. Prescriptions: New ketorolac 10 mg tablet 10 mg PO TID PRN (Reason: pain) 5 Days Qty: 15 0RF lidocaine 5 % adhesive patch,medicated 1 patch topical DAILY PRN (Reason: pain) Qty: 15 0RF Rx Instructions: leave on most painful area for up to 12 hrs No Action levetiracetam 500 mg Tablet 500 mg PO BID 30 Days Qty: 60 0RF azithromycin 250 mg tablet 250 mg PO DAILY 5 Days Qty: 5 0RF cefuroxime axetil 500 mg tablet 500 mg PO BID 5 Days Qty: 10 0RF permethrin 5 % cream 1 appl topical Q14D Qty: 60 0RF Rx Instructions: apply second treatment 14 days after first treatment if live lice remain doxycycline hyclate 100 mg tablet 100 mg PO BID Qty: 20 0RF hydroxyzine HCl 25 mg tablet 25 mg PO Q6-8H PRN (Reason: itching) Qty: 30 0RF levetiracetam [Keppra] 500 mg tablet 500 mg PO BID 30 Days Qty: 60 0RF Referrals: [facility] [Provider Group] - 1 day Physician,None [Primary Care Provider] - 2 days Interventions: ED Discharge Assessment Last Done: 12/26/23 10:04
[2023-12-26 09:19] LABS: MANUAL DIFF FLAG NO
[2023-12-26 09:21] LABS: Basophils Absolute Auto 0.1 X10*3/uL (0.0-0.2); Basophils Percent Auto 0.8 % (0-2); Eosinophils Absolute Auto 0.2 X10*3/uL (0.0-0.4); Eosinophils Percent Auto 1.9 % (0-4); Hematocrit 41.7 % (37.0-47.0); Hemoglobin 13.9 g/dl (12.0-16.0); Imm Gran Abs Auto 0.02 X10*3/uL (0.00-0.03); Imm Gran Pct Auto 0.2 % (0.0-0.4); Lymphocytes Absolute Auto 2.4 X10*3/uL (1.2-4.9); Lymphocytes Percent Auto 28.6 % (20-40); Mean Corpuscular HGB Conc 33.3 g/dl (31.0-35.0); Mean Corpuscular Hemoglobin 29.9 pg (27.0-33.0); Mean Corpuscular Volume 89.7 fL (80.0-98.0); Mean Platelet Volume 9.3 fL (9.4-12.3); Monocytes Percent Auto 12.4 % (2-11); Neutrophils Absolute Auto 4.6 x10*3/uL (2.0-8.3); Neutrophils Percent Auto 56.1 % (45-73); Platelet Count 288 X10*3/uL (160-400); Red Blood Count 4.65 X10*6/uL (4.20-5.50); Red Cell Distribution Width 14.3 % (11.0-16.0); White Blood Count 8.3 X10*3/uL (4.8-10.8)
[2023-12-26 09:43] LABS: Alanine Aminotransferase 11 U/L (0-31); Alkaline Phosphatase 76 U/L (39-117); Anion Gap 11 (12-20); Aspartate Amino Transferase 19 U/L (5-31); Bilirubin Total 0.2 mg/dL (0.0-1.0); Blood Urea Nitrogen 20 mg/dL (9-16); Calcium 9.3 mg/dL (8.4-10.2); Carbon Dioxide 28 mmol/L (22-29); Chloride 108 mmol/L (96-108); Estimated Glomerular Filt Rate > 60; Glucose Random 92 mg/dL (60-115); Magnesium 2.1 mg/dL (1.6-2.6); Potassium 4.6 mmol/L (3.3-5.1); Sodium 142 mmol/L (135-145); Total Protein 7.1 g/dL (6.5-8.0)
[2023-12-26] MEDS: 0.9 % Sodium Chloride 1,000 ML 999 ML IV (09:49)
[2023-12-26] MEDS: Ketorolac Tromethamine 30 MG/ML VIAL IVPUSH (09:49)
[2023-12-26 09:57] LABS: Ethanol < 10 mg/dL; Troponin-I High Sensitivity < 2.7 ng/L (<3.5-17.0)
[2023-12-26 10:04] VITALS: BP 99/57; PULSE 82; RESP 16; TEMP 36.9; O2SAT 97
[2023-12-26 10:26] VITALS: BP 113/72; PULSE 60; RESP 16; TEMP 36.7; O2SAT 100
[2023-12-26] MEDS: iohexoL 350 MG/ML 100 ML INFUS..BTL IV (11:22)
--- NOTE | 2023-12-26 12:52 | PC.NURSE ---
PT STATES TINGLING FROM HER R SIDE OF HER NECK TO HER R FINGERS. MLP (JENNIFER) AWARE. PT C-COLLAR D/C'D BY MLP. PT REQUESTED/GIVEN HAM SANDWICH AND APPLE JUICE.
[2023-12-26 13:38] VITALS: BP 103/54; PULSE 65; RESP 17; TEMP 37; O2SAT 99
[2023-12-26 13:39] VITALS: BP 103/54; PULSE 65; RESP 16; TEMP 37; O2SAT 99
== END 2023-12-26 13:40 | disposition home or self-care (01) ==
PROVIDERS: Physician Assistant; Emergency Provider Emergency Medicine
DX: G40.909 Epilepsy, unspecified, not intractable, without status epilepticus (principal); M54.2 Cervicalgia; N20.0 Calculus of kidney; M54.50 Low back pain, unspecified; R07.89 Other chest pain; R51.9 Headache, unspecified; F07.81 Postconcussional syndrome; Z79.899 Other long term (current) drug therapy
CPT/HCPCS: 36415; 70450; 71260; 72125; 74177; 80053; 80307; 82550; 83735; 84484; 85025; 93005; 96361; 96374; 99284; 99285; J1885; Q9967

== ENCOUNTER → 2023-12-26 08:08 | Outpatient (BNV) | payer OTHER, SELFPAY | PROVIDERS: Emergency Provider Emergency Medicine; Visit Provider Internal Medicine Cardiovascular Disease | DX: R55 Syncope and collapse (principal) | CPT/HCPCS: 93010 ==

== ENCOUNTER 2025-01-22 08:53 | Emergency (ER) | payer OTHER, SELFPAY ==
[2025-01-22 08:59] VITALS: BP 135/80; PULSE 69; O2SAT 100
--- NOTE | 2025-01-22 09:03 | ED_ITS ---
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 States pain is too severe to open her eye. Unsure of vision changes. Does not wear contact lenses or glasses. Denies nausea or vomiting. MD complaint: right eye pain Onset (ago): hour(s) Location: eyes Related Data Previous Rx's ?Medication ?Instructions ?Recorded azithromycin 250 mg tablet 250 mg PO DAILY 5 days #5 tabs 11/04/22 cefuroxime axetil 500 mg tablet 500 mg PO BID 5 days #10 tabs 11/04/22 levetiracetam 500 mg tablet 500 mg PO BID 30 days #60 tabs 11/04/22 doxycycline hyclate 100 mg tablet 100 mg PO BID #20 tabs 04/26/23 hydroxyzine HCl 25 mg tablet 25 mg PO Q6-8H PRN itching #30 tabs 04/26/23 permethrin 5 % topical cream 1 appl topical Q14D 2 doses #60 04/26/23 grams levetiracetam 500 mg tablet 500 mg PO BID 30 days #60 tabs 11/24/23 (Keppra) ketorolac 10 mg tablet 10 mg PO TID PRN pain 5 days #15 12/26/23 tabs lidocaine 5 % topical patch 1 patch topical DAILY PRN pain #15 12/26/23 ea erythromycin 5 mg/gram (0.5 %) eye 0.5 inch ophthalmic (eye) BID #3.5 01/22/25 ointment grams Allergies Allergy/AdvReac Type Severity Reaction Status Date / Time bee pollen [bee stings] Allergy Anaphylaxis Verified 01/22/25 09:09 pineapple Allergy Difficulty Verified 01/22/25 09:09 Swallowing Review of Systems Review of Systems: As per HPI Yes all other systems are reviewed and are negative Constitutional: Constitutional: Reports as per HPI PMFSH Past Medical History Medical History Cocaine use disorder, severe, dependence Polysubstance (including opioids) dependence w/o physiol dependence Diabetes Seizure disorder Social History Social History Household Members: Unknown / Unable to assess Housing: Unknown / Unable to assess Unable to assess alcohol history related to: Unknown Patient Tobacco Use Status: Tobacco use Unknown Smoked in Last 30 Days: Yes Use of substances other than those prescribed or required for medical reasons: Unknown Substance Use Type: Crack/Cocaine Advance Directives: No Advance Directives Information Provided: Yes Do you have a plan to hurt others: No Plan Patient : No service: No Current occupational status: unemployed Physical Exam ED Vital Signs: Vital Signs - 24 hr 01/22/25 09:06 Temperature 97.9 F Pulse Rate 65 Respiratory Rate 16 Blood Pressure 133/69 Pulse Oximetry 99 Oxygen Delivery Method Room Air BMI result Body Mass Index 22.3 Vital signs have been reviewed and appear to be correct. Blood pressure normal. Heart rate normal. Respiratory rate normal. Temperature normal. Oxygen saturation normal. Const General: cooperative, healthy appearing and no acute distress Orientation/consciousness: oriented to person, oriented to place, oriented to time and patient oriented x3 HENMT Head: Yes normocephalic and Yes atraumatic Ears: external ears normal General nose exam: Normal external nose present Face and sinus: No face symmetric (right facial droop at baseline r/t prior CVA per pt) Mouth: oropharynx normal and moist mucous membranes Throat: Yes uvula midline Eyes Other: IOPS: OD 19, OS 20 Visual Wong: normal visual wong by confrontation Alignment and Position: alignment normal and position normal Periorbital: periorbital findings normal Eyelids: Yes eyelid abnormality (right medial internal hordeolum) Conjunctivae: conjunctival abnormal right conjunctival injection diffuse (mild); without discharge Sclerae: sclerae normal Corneas: corneas normal and fluorescein used Pupils: Equal, round and reactive pupils present and Pupils normal by confrontation EOM: EOMs intact bilaterally Neck Neck: Yes normal visual inspection and Yes supple Resp Effort & Inspection: normal respiratory effort and able to speak in complete sentences Auscultation: clear to auscultation bilaterally Cardio Rate: regular rate Rhythm: regular rhythm Heart sounds: S1 normal heart sound present and S2 normal heart sound present GI Palpation (GI): Soft to palpation and nontender Auscultation: normoactive bowel sounds General: Yes no CVA tenderness Back/Spine/Pelvis Back: no CVA tenderness Skin General skin exam: elasticity normal and turgor normal Neuro General: oriented to person, oriented to place, oriented to time, patient oriented x3, moves all extremities, No no focal motor deficits (right upper and lower extremity weakness at baseline r/t prior CVA per PT) and CN's II-XI intact bilaterally Cranial nerves: Yes Equal, round and reactive pupils present Cognition (Neuro): normal cognition Extrem General: Yes full ROM, Yes no pedal edema and Yes no calf tenderness Psych Mental Status: mental status grossly normal Affect: normal affect Thought process: Normal thought process present Medications Administered Discontinued Medications Generic Name Dose Route Start Last Admin Trade Name Freq PRN Reason Stop Dose Admin Fluorescein Sodium 1 strip 01/22/25 09:04 01/22/25 09:19 Fluorescein Sodium Strip EYE-RIGHT 01/22/25 09:05 1 strip ONCE ONE Administration Tetracaine HCl 1 drop 01/22/25 09:04 01/22/25 09:19 Tetracaine Hcl 0.5% Oph Rosa 5 Ml Drops EYE-RIGHT 01/22/25 09:05 Not Given ONCE ONE Tetracaine HCl 1 drop 01/22/25 09:15 01/22/25 09:19 Tetracaine Hcl/Pf 0.5% Oph Rosa 4 Ml Drops EYE-RIGHT 01/22/25 09:16 1 drop ONCE ONE Administration Medical Decision Making Medical Decision Making MDM Narrative: Patient is a 44-year-old female with history of DM, seizure disorder, polysubstance use, CVA with subsequent right-sided deficits presenting to the emergency department with complaint of right eye pain and swelling since this morning. On exam patient is awake, A+Ox3, VS WNL, afebrile, normal neurological exam without focal deficits, physical exam findings as above. Given reported symptoms and physical exam findings, initial differential includes but is not limited to hordeolum, corneal abrasion, conjunctivitis. Right internal hordeolum noted on physical exam. Do not suspect acute angle closure glaucoma, zoster, uveitis, CRAO/CVAO. Will treat with erythromycin ointment, advised warm compresses, good hand hygiene. Will refer to Ophthalmology for any ongoing symptoms. Return precautions discussed. Patient verbalized understanding of and agreement with plan. Differential Diagnosis Differential Diagnoses: The differential diagnosis associated with the presentation includes As per [facility] Admission/Observation Consideration of admission/observation: Escalation of care including admission/observation considered Patient would have been admitted to the hospital had their work up had any findings where hospital admission was appropriate and their clinical presentation warranted hospital admission. External Record Review External record reviewed: Inpatient record, Office record and Outpatient record Prescription Management I considered prescription management with: Antibiotic Discharge Plan Discharge Clinical Impression: Internal hordeolum of right eye Patient Disposition: Home, Self-Care Instructions: Stye (ED) Additional Instructions: You were evaluated in the emergency department today for right eye pain. Your evaluation showed an internal hordeolum (stye) inside your right eyelid. You are being treated with antibiotic ointment, use this as prescribed. We also recommend that you apply warm compresses to your eyes several times daily. If you develop new redness, swelling, discharge or drainage, changes in vision or any other new or concerning symptoms, return to the ED or follow up with sql database administrator. Prescriptions: New erythromycin 5 mg/gram (0.5 %) ointment 0.5 inch ophthalmic (eye) BID Qty: 3.5 0RF Rx Instructions: Apply inside right lower eyelid No Action levetiracetam 500 mg Tablet 500 mg PO BID 30 Days Qty: 60 0RF azithromycin 250 mg tablet 250 mg PO DAILY 5 Days Qty: 5 0RF cefuroxime axetil 500 mg tablet 500 mg PO BID 5 Days Qty: 10 0RF permethrin 5 % cream 1 appl topical Q14D Qty: 60 0RF Rx Instructions: apply second treatment 14 days after first treatment if live lice remain doxycycline hyclate 100 mg tablet 100 mg PO BID Qty: 20 0RF hydroxyzine HCl 25 mg tablet 25 mg PO Q6-8H PRN (Reason: itching) Qty: 30 0RF levetiracetam [Keppra] 500 mg tablet 500 mg PO BID 30 Days Qty: 60 0RF ketorolac 10 mg tablet 10 mg PO TID PRN (Reason: pain) 5 Days Qty: 15 0RF lidocaine 5 % adhesive patch,medicated 1 patch topical DAILY PRN (Reason: pain) Qty: 15 0RF Rx Instructions: leave on most painful area for up to 12 hrs Referrals: Jasbir Duran [Physician] - 1 week (right internal hordeolum, f/u as needed) Print Language: Khmer
[2025-01-22 09:06] VITALS: BP 133/69; PULSE 65; RESP 16; TEMP 36.6; O2SAT 99; BMI 22.3
[2025-01-22] MEDS: Fluorescein Sodium STRIP 1 STRIP EYE-RIGHT (09:19)
[2025-01-22] MEDS: Tetracaine HCl/PF 0.5% Oph Sol 4 ML DROPS 1 DROP EYE-RIGHT (09:19)
[2025-01-22 11:29] VITALS: BP 99/50; PULSE 87; RESP 16; TEMP 36.8; O2SAT 99
== END 2025-01-22 11:31 | disposition home or self-care (01) ==
PROVIDERS: Emergency Provider Emergency Medicine
DX: H00.013 Hordeolum externum right eye, unspecified eyelid (principal); H57.11 Ocular pain, right eye
CPT/HCPCS: 99283; 99284